=== PATIENT | female | born 1950 | race Caucasian/White ===

== ENCOUNTER 2021-02-28 19:46 | Emergency (ER) | payer MEDICARE, SELFPAY ==
--- NOTE | ~2021-02-28 | XR_ITS ---
EXAMINATION: XR ankle RT min 3V DATE: 02/28/2021 20:26 INDICATION: Right ankle pain and swelling. TECHNIQUE: 4 views of right ankle were obtained. COMPARISON: None. FINDINGS: Bone alignment is normal. No fracture. Joint spaces are well maintained. There is an enthes ophyte at plantar aspect of calcaneal tuberosity. Ankle soft tissue swelling is noted. IMPRESSION: 1. No fracture. Reviewed, dictated and finalized at location A. IMPRESSION: 1. No fracture.
[2021-02-28 20:09] VITALS: BP 151/70; PULSE 87; RESP 18; TEMP 37.1; O2SAT 100
[2021-02-28 23:52] VITALS: BP 149/77; PULSE 81; RESP 18; O2SAT 99
[2021-03-01 00:37] LABS: Basophils Absolute Auto 0.1 K/mm3 (0.0-0.1); Basophils Percent Auto 0.4 % (0.2-1.2); Eosinophils Absolute Auto 0.2 K/mm3 (0-0.3); Eosinophils Percent Auto 1.4 % (0-4.4); Hematocrit 39.8 % (37.0-47.0); Hemoglobin 12.7 g/dL (12.0-15.0); Immature Granulocyte Absolute 0.06 K/mm3 (0.00-0.031); Immature Granulocyte Percent A 0.4 % (0-0.5); Lymphocytes Absolute Auto 0.99 K/mm3 (0.9-3.2); Lymphocytes Percent Auto 5.9 % (18.3-44.2); Mean Corpuscular HGB Conc 31.9 g/dl (32-36); Mean Corpuscular Hemoglobin 28.3 pg (26-34); Mean Corpuscular Volume 88.8 fl (80-100); Mean Platelet Volume 12.1 fl (7.4-10.4); Monocytes Absolute Auto 1.6 K/mm3 (0.1-0.6); Monocytes Percent Auto 9.8 % (2.6-8.5); Neutrophils Absolute Auto 13.7 K/mm3 (1.3-6.7); Neutrophils Percent Auto 82.1 % (45.5-73.1); Platelet Count Result 229 k/mm3 (150-375); Red Blood Count 4.48 M/mm3 (4.2-5.4); Red Cell Distribution Width 14.2 % (11.5-14.5); White Blood Count 16.6 K/mm3 (4.5-10.0)
[2021-03-01 00:46] LABS: Anion Gap 9 mmol/L (8-16); Blood Urea Nitrogen 27 mg/dL (7-17); Calcium 9.1 mg/dL (8.4-10.2); Carbon Dioxide 27 mmol/L (22-30); Chloride 99 mmol/L (98-107); Estimated CRCL calculation 49 ml/min; Estimated Glomerular Filt Rate 54; Glucose 131 mg/dL (65-110); Potassium 3.7 mmol/L (3.4-5.0); Sodium 135 mmol/L (137-145)
[2021-03-01 01:44] VITALS: BP 151/66; PULSE 90; RESP 16; O2SAT 99
--- NOTE | 2021-03-01 03:01 | ED.LOWEXIN ---
HPI - Extremity Injury (Lower) General Chief Complaint: Extremity Injury, Lower Stated Complaint: RIGHT ankle pain and swelling Time Seen by Provider: 02/28/21 23:56 History of Present Illness HPI Narrative: Patient is a 71-year-old female who presents ER with redness to her right medial ankle. This developed over the last day. It is warm and tender to touch. Denies trauma. Patient is alert and oriented x2. Sent from [facility] for evaluation. Related Data Home Medications Medication Instructions Recorded Confirmed aspirin 03/01/21 bupropion HCl mg PO 03/01/21 levothyroxine 03/01/21 modafinil mg 03/01/21 nystatin [Nystop] TOPICAL 03/01/21 potassium chloride meq PO 03/01/21 Allergies Allergy/AdvReac Type Severity Reaction Status Date / Time garlic Allergy Unknown Verified 03/01/21 00:06 Review of Systems Review of Systems: ROS unobtainable: Yes unobtainable due to mental status PMFSH Past Medical History Medical History (Updated 03/01/21 @ 03:11 by Stanley Chowdary MD) Dementia Depression Hypothyroidism Surgical History Surgical History (Updated 03/01/21 @ 03:04 by Stanley Chowdary MD) No pertinent past surgical history Social History Social History (Updated 03/01/21 @ 03:04 by Stanley Chowdary MD) Social History: Resides at [facility] Exam Narrative: GENERAL: Well-appearing, well-nourished, and in no acute distress. HEAD: Normocephalic, atraumatic. EYES: PERRL and EOMI. CHEST: Clear to auscultation. No respiratory distress. HEART: Regular rate and rhythm. Normal peripheral pulses. ABDOMEN: Soft, nontender, nondistended. EXTREMITIES: Normal range of motion. No edema. Cellulitis right medial ankle extending to the distal calf. SKIN: Warm, dry, no rash. Cellulitis right ankle. Does not involve the foot. NEURO: Alert and oriented x2. PSYCH: Normal mood and affect. Course Course Emergency Course: Patient given IV antibiotics. Will start on oral cephalexin. Follow-up with PCP. Vital Signs Vital signs: Vital Signs Temperature 98.8 F 02/28/21 20:09 Pulse Rate 87 02/28/21 20:09 Respiratory Rate 18 02/28/21 20:09 Blood Pressure 151/70 H 02/28/21 20:09 Pulse Oximetry 100 02/28/21 20:09 Temperature 98.8 F 02/28/21 20:09 Pulse Rate 90 03/01/21 01:44 Respiratory Rate 16 03/01/21 01:44 Blood Pressure 151/66 H 03/01/21 01:44 Pulse Oximetry 99 03/01/21 01:44 MDM - Extremity Injury (Lower) Lab Data Result diagrams: 03/01/21 00:28 03/01/21 00:28 Labs: Lab Results 03/01/21 03/01/21 Range/Units 00:28 00:28 WBC 16.6 H (4.5-10.0) K/mm3 RBC 4.48 (4.2-5.4) M/mm3 Hgb 12.7 (12.0-15.0) g/dL Hct 39.8 (37.0-47.0) % MCV 88.8 (80-100) fl MCH 28.3 (26-34) pg MCHC 31.9 L (32-36) g/dl RDW 14.2 (11.5-14.5) % Plt Count 229 (150-375) k/mm3 MPV 12.1 H (7.4-10.4) fl Immature Gran % (Auto) 0.4 (0-0.5) % Neut % (Auto) 82.1 H (45.5-73.1) % Lymph % (Auto) 5.9 L (18.3-44.2) % Bureau % (Auto) 9.8 H (2.6-8.5) % Eos % (Auto) 1.4 (0-4.4) % Baso % (Auto) 0.4 (0.2-1.2) % Lymph # (Auto) 0.99 (0.9-3.2) K/mm3 Bureau # (Auto) 1.6 H (0.1-0.6) K/mm3 Eos # (Auto) 0.2 (0-0.3) K/mm3 Baso # (Auto) 0.1 (0.0-0.1) K/mm3 Abs Immat Gran (auto) 0.06 H (0.00-0.031) K/mm3 Absolute Neuts (auto) 13.7 H (1.3-6.7) K/mm3 Absolute Nucleated RBC 0.0 (0.0-0.012) K/mm3 Nucleated RBC % 0.0 (0.0-0.2) % Sodium 135 L (137-145) mmol/L Potassium 3.7 (3.4-5.0) mmol/L Chloride 99 (98-107) mmol/L Carbon Dioxide 27 (22-30) mmol/L Anion Gap 9 (8-16) mmol/L BUN 27 H (7-17) mg/dL Creatinine 1.00 (0.7-1.0) mg/dL Estim Creat Clear Calc 49 ml/min Estimated GFR 54 L (59 - ) Glucose 131 H (65-110) mg/dL Calcium 9.1 (8.4-10.2) mg/dL Discharge Plan Discharge Clinical Impression: Ankle cellulitis Patient Dispos
--- NOTE | 2021-03-01 03:05 | PC.NURSE ---
This RN contacted Harsha, pts son, for ride back to [place]. States he will be here as soon as he can.
[2021-03-01 03:29] VITALS: BP 134/76; PULSE 88; RESP 16; O2SAT 99
== END 2021-03-01 03:55 ==
PROVIDERS: Emergency Provider Emergency Medicine; PCP Internal Medicine
DX: L03.115 Cellulitis of right lower limb (principal); F03.90 Unspecified dementia, unspecified severity, without behavioral disturbance, psychotic disturbance, mood disturbance, and anxiety; E03.9 Hypothyroidism, unspecified; F32.9 Major depressive disorder, single episode, unspecified; Z79.82 Long term (current) use of aspirin
CPT/HCPCS: 36415; 73610; 80048; 85025; 96365; 99284; J0690

== ENCOUNTER 2021-05-15 20:18 | Emergency (ER) | payer MEDICARE, SELFPAY ==
--- NOTE | ~2021-05-15 | CT_ITS ---
EXAMINATION: CT brain wo con DATE: 05/15/2021 23:36 INDICATION: Syncope TECHNIQUE: Computed tomography (CT) of the head was performed without intravenous contrast. Sagittal and coronal reconstructions were performed. The mA was adjusted according to patient size. Iterative reconstruction technique was employed. The dose-length product was 605.33 mGy-cm. COMPARISON: None FINDINGS: No fracture. No acute intracranial hemorrhage, acute infarction or abnormal extra axial fluid collect ion. There is mild scattered white matter hypoattenuation consistent with chronic small vessel ischem ic disease. Symmetric prominence of the sulci and ventricles consistent with moderate age-appropriate diffuse cerebral volume loss. No mass/mass effect. The orbits, paranasal sinuses and mastoid air deanne ls are normal. IMPRESSION: 1. Age-related changes including moderate diffuse volume loss and mild scattered white matter hypoatt enuation consistent with chronic small vessel ischemic disease. Reviewed, dictated and finalized at location A. ACQUISITION ANALYST IMPRESSION: 1. Age-related changes including moderate diffuse volume loss and mild scattere d white matter hypoattenuation consistent with chronic small vessel ischemic di sease.
--- NOTE | ~2021-05-15 | XR_ITS ---
EXAMINATION: [id number] DATE: 05/15/2021 23:54 INDICATION: Posterior left lower rib pain post fall TECHNIQUE: A frontal inspiratory view of the chest and 3 views of the left ribs were obtained. COMPARISON: None FINDINGS: Minimally displaced acute posterolateral left ninth rib fracture. Old healed fracture deformities at the left 2nd-6th ribs. Old healed fracture deformity at the proximal left humerus. No focal airspace opacities, pulmonary edema, pleural effusion or pneumothorax. Cardiomediastinal silhouette is normal. IMPRESSION: 1. Minimally displaced acute posterolateral left ninth rib fracture. 2. No acute cardiopulmonary disease. Reviewed, dictated and finalized at location A. INE TICKET AGENT
--- NOTE | ~2021-05-15 | XR_ITS ---
EXAMINATION: XR hip LT 2V w AP pelvis DATE: 05/15/2021 23:53 INDICATION: Generalized pelvis and left hip pain post fall TECHNIQUE: Anteroposterior view of the pelvis and anteroposterior and frog-leg lateral views of the l eft hip were obtained. COMPARISON: None. FINDINGS: Normal alignment at the bilateral hips. No fracture. Sacral arches are intact. Bilateral hip and sacr oiliac joint spaces appear normal. Lower lumbar spondylosis. A couple phleboliths in the pelvis. IMPRESSION: 1. No acute osseous abnormality at the left hip or pelvis. Reviewed, dictated and finalized at location A. THCARE FINANCIAL ANALYST
[2021-05-15 20:22] VITALS: BP 154/78; PULSE 68; RESP 20; TEMP 36.1; O2SAT 99
--- NOTE | 2021-05-15 23:25 | ED.FALL ---
HPI - Fall General Chief Complaint: Fall Stated Complaint: Fall. L side pain Time Seen by Provider: 05/15/21 22:59 Source: patient Mode of arrival: ambulatory Limitations: no limitations History of Present Illness HPI Narrative: Patient is a 71-year-old female complaining of left rib pain and left hip pain after she fell at the assisted living facility prior to arrival. Patient states that she cannot recall what happened. Patient does not know if she passed out or not. Patient denies any head, neck, abdomen, back or any other extremity pain/injury. Related Data Home Medications Medication Instructions Recorded Confirmed aspirin 03/01/21 bupropion HCl mg PO 03/01/21 levothyroxine 03/01/21 modafinil mg 03/01/21 nystatin [Nystop] TOPICAL 03/01/21 potassium chloride meq PO 03/01/21 Allergies Allergy/AdvReac Type Severity Reaction Status Date / Time garlic Allergy Unknown Verified 05/15/21 20:25 Review of Systems Review of Systems: All systems reviewed & are unremarkable except as noted in HPI and below Constitutional: Constitutional: Denies body ache(s), Denies chills, Denies excessive sweating, Denies fatigue, Denies fever(s), Denies headache(s), Denies lethargy, Denies malaise, Denies weakness and Denies weight loss Eyes: Eyes: Denies blurry vision, Denies change in vision and Denies loss of vision ENT: Denies dizziness, Denies ear discharge, Denies headache(s), Denies lip swelling, Denies epistaxis, Denies nasal congestion, Denies neck pain, Denies throat swelling and Denies tongue swelling Cardiovascular: Cardiovascular: Denies chest pain, Denies chest pain at rest, Denies chest pain with activity, Denies diaphoresis, Denies rapid heart rate, Denies edema, Denies irregular heart rhythm, Denies lightheadedness, Denies palpitations, Denies dyspnea and Denies dyspnea on exertion Respiratory: Respiratory: Denies chest congestion, Denies cough, Denies hemoptysis, Denies dyspnea and Denies dyspnea on exertion Gastrointestinal: Gastrointestinal: Denies abdominal pain, Denies melena, Denies hematochezia, Denies diarrhea, Denies nausea, Denies vomiting and Denies hematemesis Musculoskeletal: Musculoskeletal: Denies abnormal gait, Denies deformity, Denies joint swelling, Denies limited range of motion, Denies neck pain and Denies numbness Neurologic: Denies Abnormal speech present, Denies abnormal gait, Denies confusion, Denies dizziness, Denies headache(s), Denies focal weakness, Denies loss of vision, Denies numbness, Denies Other visual disturbances, Denies Sensory deficit (Neuro) and Denies weakness Psychiatric: Psychiatric: Denies confusion, Denies depression, Denies auditory hallucinations, Denies homicidal ideation and Denies suicidal ideation Endocrine: Endocrine: Denies cold intolerance, Denies excessive sweating, Denies fatigue, Denies heat intolerance and Denies palpitations Hematologic/Lymphatic: Hematologic/Lymphatic: Denies easy bleeding and Denies easy bruising Allergic/Immunologic: Allergic/Immunologic: Denies lip swelling, Denies throat swelling and Denies tongue swelling PMFSH Past Medical History Medical History Dementia Depression Hypothyroidism Surgical History Surgical History No pertinent past surgical history Social History Social History Social History: Resides at [facility] Exam Const: General: cooperative, healthy appearing, comfortable, no acute distress, well developed, alert and awake; No confusion Orientation/consciousness: oriented to person, oriented to place, oriented to time, patient oriented x3 and No confusion Limitations: no limitations HENMT: Head: normal to inspection, normocephalic and atraumatic Ears: hearing grossly normal bilaterally, TM normal on the right and TM normal on the left Gen
[2021-05-15 23:57] VITALS: PULSE 70; RESP 19; O2SAT 98
[2021-05-16] VITALS (21 sets, daily range): BP systolic 124–182; BP diastolic 76–104; PULSE 62–75; RESP 15–23; O2SAT 93–100
[2021-05-16 00:10] LABS: Basophils Absolute Auto 0.1 K/mm3 (0.0-0.1); Basophils Percent Auto 0.8 % (0.2-1.2); Eosinophils Absolute Auto 0.5 K/mm3 (0-0.3); Eosinophils Percent Auto 5.5 % (0-4.4); Hematocrit 40.5 % (37.0-47.0); Hemoglobin 13.4 g/dL (12.0-15.0); Immature Granulocyte Absolute 0.05 K/mm3 (0.00-0.031); Immature Granulocyte Percent A 0.6 % (0-0.5); Lymphocytes Absolute Auto 0.87 K/mm3 (0.9-3.2); Lymphocytes Percent Auto 9.7 % (18.3-44.2); Mean Corpuscular HGB Conc 33.1 g/dl (32-36); Mean Corpuscular Hemoglobin 29.1 pg (26-34); Mean Corpuscular Volume 87.9 fl (80-100); Mean Platelet Volume 12.4 fl (7.4-10.4); Monocytes Absolute Auto 0.8 K/mm3 (0.1-0.6); Neutrophils Absolute Auto 6.7 K/mm3 (1.3-6.7); Neutrophils Percent Auto 74.4 % (45.5-73.1); Platelet Count Result 203 k/mm3 (150-375); Red Blood Count 4.61 M/mm3 (4.2-5.4); Red Cell Distribution Width 14.7 % (11.5-14.5)
[2021-05-16 00:19] LABS: Anion Gap 10 mmol/L (8-16); Blood Urea Nitrogen 28 mg/dL (7-17); Calcium 8.9 mg/dL (8.4-10.2); Carbon Dioxide 27 mmol/L (22-30); Chloride 101 mmol/L (98-107); Estimated Glomerular Filt Rate 54; Glucose 119 mg/dL (65-110); Potassium 4.2 mmol/L (3.4-5.0); Sodium 138 mmol/L (137-145)
--- NOTE | 2021-05-16 00:20 | ECG_ITS ---
Measurements Intervals [place] Rate: 69 P: 48 MT: 139 QRS: 6 QRSD: 90 T: 75 QT: 394 QTc: 424 Interpretive Statements SINUS RHYTHM LOW QRS VOLTAGE IN PRECORDIAL LEADS INFERIOR INFARCT, AGE INDETERMINATE BORDERLINE T WAVE ABNORMALITY- HIGH LATERAL LEADS BASELINE ARTIFACT- II, V1, V4-V6 ABNORMAL ECG Electronically Signed On 05-16-2021 7:47:37 FRONT DESK AUXILIARY by Johann Hernandez D.O.
[2021-05-16] MEDS: HYDROmorphone HCL INJ (*CRX) 1 MG/ML SYR 0.5 MG IM (01:29)
--- NOTE | 2021-05-16 02:51 | PC.NURSE ---
RN called report to Tita at [facility]. notified that Rx will need to be sent to pharmacy and what meds were given in ER. no questions at this time. ETA for EMS [id number], if EMS arrives late RN will call when pt leaves the ER.
[2021-05-16] MEDS: HYDROcodone/acetaminophen (*CRX) 5-325 MG TABLET 1 TAB PO (04:39)
== END 2021-05-16 04:50 ==
PROVIDERS: Emergency Provider Emergency Medicine; PCP Internal Medicine
DX: S22.32XA Fracture of one rib, left side, initial encounter for closed fracture (principal); F03.90 Unspecified dementia, unspecified severity, without behavioral disturbance, psychotic disturbance, mood disturbance, and anxiety; F32.A Depression, unspecified; E03.9 Hypothyroidism, unspecified; R94.31 Abnormal electrocardiogram [ECG] [EKG]; W19.XXXA Unspecified fall, initial encounter
CPT/HCPCS: 36415; 70450; 71101; 73502; 80048; 85025; 93005; 96372; 99284; A9270; J1170

== ENCOUNTER 2021-07-25 11:09 | Outpatient (CLI) | payer MEDICARE, SELFPAY ==
[2021-07-25 11:51] LABS: Basophils Absolute Auto 0.1 K/mm3 (0.0-0.1); Basophils Percent Auto 1.4 % (0.2-1.2); Eosinophils Absolute Auto 0.6 K/mm3 (0-0.3); Hematocrit 43.9 % (37.0-47.0); Hemoglobin 14.2 g/dL (12.0-15.0); Immature Granulocyte Absolute 0.02 K/mm3 (0.00-0.031); Immature Granulocyte Percent A 0.3 % (0-0.5); Lymphocytes Absolute Auto 0.83 K/mm3 (0.9-3.2); Lymphocytes Percent Auto 10.8 % (18.3-44.2); Mean Corpuscular HGB Conc 32.3 g/dl (32-36); Mean Corpuscular Hemoglobin 29.3 pg (26-34); Mean Corpuscular Volume 90.7 fl (80-100); Mean Platelet Volume 12.1 fl (7.4-10.4); Monocytes Absolute Auto 0.8 K/mm3 (0.1-0.6); Monocytes Percent Auto 10.1 % (2.6-8.5); Neutrophils Absolute Auto 5.3 K/mm3 (1.3-6.7); Neutrophils Percent Auto 69.4 % (45.5-73.1); Platelet Count Result 219 k/mm3 (150-375); Red Blood Count 4.84 M/mm3 (4.2-5.4); Red Cell Distribution Width 13.6 % (11.5-14.5); White Blood Count 7.7 K/mm3 (4.5-10.0)
[2021-07-25 12:02] LABS: Alanine Aminotransferase 24 U/L (4-35); Albumin Level 4.5 g/dL (3.5-5.1); Alkaline Phosphatase 76 U/L (38-126); Anion Gap 11 mmol/L (8-16); Aspartate Amino Transferase 26 U/L (14-36); Bilirubin,Total 0.7 mg/dL (0.2-1.3); Blood Urea Nitrogen 12 mg/dL (7-17); Calcium 8.9 mg/dL (8.4-10.2); Carbon Dioxide 23 mmol/L (22-30); Chloride 102 mmol/L (98-107); Cholesterol 189 mg/dL (0-200); Estimated Glomerular Filt Rate 54; Glucose 148 mg/dL (65-110); HDL Direct 60 mg/dL; Potassium 3.9 mmol/L (3.4-5.0); Sodium 136 mmol/L (137-145); Triglycerides 94 mg/dL (<150)
[2021-07-25 12:13] LABS: LDL Cholesterol Direct 97 mg/dL
[2021-07-25 13:05] LABS: Thyroid Stimulating Hormone Reflex 0.546 uIU/mL (0.465-4.68)
[2021-07-25 13:46] LABS: Folic Acid > 20.0 ng/mL (2.76->20); Vitamin B12 > 1000.0 pg/mL (239-931)
[2021-07-28 11:35] LABS: Vitamin D 1,25 (OH)2 Total 39 pg/mL (18-72); Vitamin D2 1,25 (OH)2 <8 pg/mL; Vitamin D3 1,25 (OH)2 39 pg/mL
== END 2021-07-25 11:10 | disposition home or self-care (01) ==
LOC: ANHLAB 11:19
PROVIDERS: PCP Internal Medicine
DX: E78.5 Hyperlipidemia, unspecified (principal); E53.8 Deficiency of other specified B group vitamins; E66.01 Morbid (severe) obesity due to excess calories; I10 Essential (primary) hypertension; E03.9 Hypothyroidism, unspecified; R79.89 Other specified abnormal findings of blood chemistry; E55.9 Vitamin D deficiency, unspecified
CPT/HCPCS: 36415; 80053; 80061; 82607; 82652; 82746; 84443; 85025

== ENCOUNTER 2022-04-10 12:50 | Outpatient (CLI) | payer MEDICARE, SELFPAY ==
--- NOTE | ~2022-04-10 | DEXA_ITS ---
Bone Density Report Name: MARCOS ZARCO Age: 72 Sex: Female Ethnicity: White Date of : 1950 Indication: postmenopausal; screening for osteoporosis; Referring Provider: UNKNOWN, UNKNOWN Study: Bone densitometry was performed. Exam Date: April 10, 2022 Accession number: [id number] Bone Density: Region BMD T-score Z-score Classification AP Spine(L1-L4) 0.970 -0.7 1.6 Normal Femoral Neck (Left) 0.557 -2.6 -0.6 Osteoporosis Total Hip (Left) 0.853 -0.7 1.0 Normal Femoral Neck (Right) 0.522 -2.9 -0.9 Osteoporosis Total Hip (Right) 0.766 -1.4 0.3 Osteopenia Total Hip Mean 0.809 -1.1 0.7 Osteopenia World Health Organization criteria for BMD impression classify patients as: Normal (T-score at or above -1.0), Osteopenia (T-score between -1.0 and -2.5), or Osteoporosis (T-score at or below -2.5). 10-year Fracture Risk: FRAX not reported because: Some T-score for Spine Total or Hip Total or Femoral Neck at or below -2.5 Clinical Information Provided by Patient: Patient maximum height was 62 Menopause Age: 43 No regular weight bearing exercise Drinks caffeinated beverages Onset of menses at age 11 Number of children 2 Impression: The patient has osteoporosis, based on the Right Femoral Neck T-score. Discussion: INCREASED RISK OF FRACTURE. BONE DENSITY IS UNDESIRABLY LOW AT ONE OR MORE SKELETAL SITES, CONSISTENT WITH POSTMENOPAUSAL OSTEOPOROSIS. This patient's lowest T-score meets the World Health Organization's (WHO) criteria for osteoporosis at one or more sites (T-score -2.5 or below). In untreated patients, the risk of osteoporotic fracture increases approximately two-fold for each 1.0 SD decrease in T-score. Low bone density is not the only risk factor for fracture; also consider factors such as patient's age, frailty or poor health, risk of falling, risk of injury, previous osteoporotic fracture, family history of osteoporosis, cigarette smoking, low body weight, etc. Not everyone with low bone mineral density has osteoporosis; osteomalacia and other metabolic bone disorders should also be considered. Patients who have osteoporosis should be evaluated for specific diseases and conditions (secondary causes) that may cause or contribute to bone loss. The [place] Association [employer] Clinical Endocrinologists (AACE) and National Osteoporosis Foundation (NOF) recommend pharmacologic intervention for all postmenopausal women whose T-score is in this range. The patient should follow a healthful lifestyle (good nutrition with adequate calcium and vitamin D, and appropriate weight-bearing exercise). Follow-Up: Consider a repeat BMD and Vertebral Fracture Assessment (VFA) exam in 2 years or sooner if medically necessary, to reassess this patient's status. Reported by: RAMIRO on 04/10/2022 1:16:00
== END 2022-04-10 12:51 | disposition home or self-care (01) ==
PROVIDERS: PCP Internal Medicine
DX: Z78.0 Asymptomatic menopausal state (principal); E55.9 Vitamin D deficiency, unspecified; M81.0 Age-related osteoporosis without current pathological fracture; M85.851 Other specified disorders of bone density and structure, right thigh
CPT/HCPCS: 77080

== ENCOUNTER 2022-04-17 10:11 | Outpatient (CLI) | payer MEDICARE, SELFPAY ==
[2022-04-17 10:52] LABS: Alanine Aminotransferase 22 U/L (6-35); Albumin Level 4.5 g/dL (3.5-5.1); Alkaline Phosphatase 89 U/L (38-126); Anion Gap 10 mmol/L (8-16); Aspartate Amino Transferase 21 U/L (14-36); Bilirubin,Total 0.6 mg/dL (0.2-1.3); Blood Urea Nitrogen 22 mg/dL (7-17); Calcium 9.1 mg/dL (8.4-10.2); Carbon Dioxide 27 mmol/L (22-30); Chloride 102 mmol/L (98-107); Estimated Glomerular Filt Rate 44; Glucose 112 mg/dL (65-110); Potassium 3.7 mmol/L (3.4-5.0); Sodium 139 mmol/L (137-145)
[2022-04-17 11:42] LABS: Vitamin B12 > 1000.0 pg/mL (239-931)
[2022-04-17 12:51] LABS: Free T4 Free Thyroxine Reflex 1.71 ng/dL (0.78-2.19)
[2022-04-17 14:36] LABS: Total Triiodothyronine (T3) 1.09 NG/ML (0.97-1.69)
== END 2022-04-17 10:12 | disposition home or self-care (01) ==
PROVIDERS: PCP Internal Medicine
DX: E53.8 Deficiency of other specified B group vitamins (principal); E03.9 Hypothyroidism, unspecified; I10 Essential (primary) hypertension
CPT/HCPCS: 36415; 80053; 82607; 84439; 84443; 84480

== ENCOUNTER 2022-06-13 07:59 | Emergency (ER) | payer MEDICARE, SELFPAY ==
--- NOTE | ~2022-06-13 | CT_ITS ---
CT head without contrast Indication: Head injury COMPARISON: 05/15/2021 Technique: Serial scans were obtained through the brain without the administration of contrast. Dose reduction technique was used on this scan by utilizing automated exposure control and iterative recon struction technique. The dose-length product (DLP) was 605.33 mGy-cm. Findings: There is no evidence of intracranial hemorrhage, mass lesion, or acute infarct. The ventri cles and subarachnoid spaces are dilated, consistent with mild atrophy. Low attenuation regions are seen within the periventricular white matter bilaterally, likely representing changes from chronic mi crovascular ischemic disease. There is no evidence of edema, mass effect or midline shift. The visu alized paranasal sinuses and mastoid air cells are clear. Impression: No intracranial hemorrhage, mass, or acute infarct. Atrophy and chronic white matter changes, as above. Reviewed, dictated and finalized at location [] RACY SPECIALIST Impression: No intracranial hemorrhage, mass, or acute infarct. Atrophy and chronic white matter changes, as above.
--- NOTE | ~2022-06-13 | CT_ITS ---
Noncontrast CT scan of the cervical spine Technique: Multiple contiguous axial [address] images of the cervical spine were obtained and rec onstructed in 2D sagittal and coronal planes on the acquisition scanner. Dose reduction technique was used on this scan by utilizing automated exposure control, adjustment of the mA and/or kV according to patient size. Clinical History: Pain Findings: No fractures or dislocations. Disc osteophyte complexes are present at the C4-C5 and C5 an d C6 levels in the left paracentral regions, resulting in probable mild left-sided canal stenosis at these levels. There are scattered mild facet joint degenerative changes. No prevertebral soft tissue swelling. Impression: No fracture or subluxation of the cervical spine. Degenerative changes, as detailed above. Reviewed, dictated and finalized at location [] LE BACK OPERATOR Impression: No fracture or subluxation of the cervical spine. Degenerative changes, as detailed above.
[2022-06-13 07:56] VITALS: BP 156/67; PULSE 69; RESP 14; TEMP 36.4; O2SAT 98
--- NOTE | 2022-06-13 08:18 | ED.GENADULT ---
HPI - General Adult General Chief complaint: Fall Stated complaint: Fall/Hit head Time Seen by Provider: 06/13/22 08:05 History of Present Illness HPI narrative: 72-year-old female presenting to the emergency department from a local assisted living for evaluation after having a mechanical ground-level fall. Patient states she slipped on her shoes causing her to fall and strike her head. Patient denies any associated loss conscious. Patient denies any pain or injury. Patient denies taking any blood thinners. Upon arrival to the emergency room patient is alert oriented and pleasantly witty. Patient denies any complaints at this time. Related Data Home Medications Medication Instructions Recorded Confirmed aspirin 81 mg chewable tablet 03/01/21 bupropion HCl 300 mg 24 hr tablet, mg PO 03/01/21 extended release levothyroxine 88 mcg tablet 03/01/21 modafinil 200 mg tablet mg 03/01/21 nystatin 100,000 unit/gram topical topical 03/01/21 powder (Nystop) potassium chloride 10 mEq meq PO 03/01/21 tablet,extended release Allergies Allergy/AdvReac Type Severity Reaction Status Date / Time garlic Allergy Unknown Verified 06/13/22 08:06 Review of Systems Review of Systems: CONSTITUTIONAL: Denies fever, chills, or sweats. EYES: Denies visual changes, redness, or discharge. ENT: Denies rhinorrhea, congestion, sore throat, or otalgia. CARDIOVASCULAR: Denies chest pain, palpitations, or edema. RESPIRATORY: Denies cough or dyspnea. GASTROINTESTINAL: Denies abdominal pain, nausea, vomiting, or diarrhea. GENITOURINARY: Denies dysuria or hematuria. SKIN: Denies rash or itching. MUSCULOSKELETAL: Denies back pain, joint pain, or myalgia. NEUROLOGIC: Denies headache, numbness, or weakness. PMFSH Past Medical History Medical History Dementia Depression Hypothyroidism Surgical History Surgical History No pertinent past surgical history Social History Social History Social History: Resides at [facility] Exam Narrative: APPEARANCE: Well appearing, no pain, no distress, well-nourished. HEAD: normocephalic, atraumatic. EYES: PERRLA/EOMI, conjunctivae clear. NOSE: Normal no drainage EARS:TMS clear with good light reflex. THROAT: Pharynx clear, no exudate. NECK: Supple. No adenopathy, no masses. RESPIRATORY: Airway patent, respirations nonlabored. Clear to auscultation bilaterally, no rales, rhonchi, wheezing. CARDIOVASCULAR: Regular rate and rhythm without murmurs rubs or gallops. ABDOMINAL: Soft, nontender, nondistended, normal bowel sounds MUSCULOSKELETAL: Moves all extremities. Strength/ROM intact, No edema, No calf tenderness. NEURO: Alert. Cranial nerves II through XII intact. Grossly intact SKIN: Warm, dry. Normal Color Course Course Emergency Course: Head and neck CT were negative for acute findings. Patient was able to be discharged back to her assisted living. All questions concerns were addressed. Vital Signs Vital signs: Vital Signs Temperature 97.6 F 06/13/22 07:56 Pulse Rate 69 06/13/22 07:56 Respiratory Rate 14 06/13/22 07:56 Blood Pressure 156/67 H 06/13/22 07:56 Pulse Oximetry 98 06/13/22 07:56 Oxygen Delivery Room Air 06/13/22 07:56 Temperature 97.6 F 06/13/22 07:56 Pulse Rate 69 06/13/22 09:07 Respiratory Rate 15 06/13/22 09:07 Blood Pressure 134/87 06/13/22 09:07 Pulse Oximetry 99 06/13/22 09:07 Oxygen Delivery Room Air 06/13/22 07:56 Medical Decision Making Vital Signs Vital Signs: Vital Signs Temperature 97.6 F 06/13/22 07:56 Pulse Rate 69 06/13/22 07:56 Respiratory Rate 14 06/13/22 07:56 Blood Pressure 156/67 H 06/13/22 07:56 Pulse Oximetry 98 06/13/22 07:56 Oxygen Delivery Room Air 06/13/22 07:56 Temperature 97.6 F 06/13/22
--- NOTE | 2022-06-13 08:40 | PC.NURSE ---
C Collar removed by EDP Dr Lake. Pt to CT scan via stretcher at this time.
[2022-06-13 09:07] VITALS: BP 134/87; PULSE 69; RESP 15; O2SAT 99
--- NOTE | 2022-06-13 09:08 | PC.NURSE ---
Called [facility] and [facility] for nurse to nurse report, name Judit was given on machine. This RN left name and PH# to return call in order to receive report.
== END 2022-06-13 11:11 ==
LOC: ANHED 09:08
PROVIDERS: Emergency Provider Emergency Medicine; PCP Internal Medicine
DX: S09.90XA Unspecified injury of head, initial encounter (principal); F03.90 Unspecified dementia, unspecified severity, without behavioral disturbance, psychotic disturbance, mood disturbance, and anxiety; E03.9 Hypothyroidism, unspecified; F32.A Depression, unspecified; W01.0XXA Fall on same level from slipping, tripping and stumbling without subsequent striking against object, initial encounter
CPT/HCPCS: 70450; 72125; 99284

== ENCOUNTER 2022-11-07 13:38 | Outpatient (CLI) | payer MEDICARE, SELFPAY ==
[2022-11-07 14:51] LABS: Anion Gap 8 mmol/L (8-16); Blood Urea Nitrogen 22 mg/dL (7-17); Calcium 8.9 mg/dL (8.4-10.2); Carbon Dioxide 27 mmol/L (22-30); Chloride 103 mmol/L (98-107); Estimated Glomerular Filt Rate 49; Glucose 119 mg/dL (65-110); Potassium 3.8 mmol/L (3.4-5.0); Sodium 138 mmol/L (137-145)
== END 2022-11-07 13:39 | disposition home or self-care (01) ==
PROVIDERS: PCP Internal Medicine; Visit Provider Hospitalist
DX: I10 Essential (primary) hypertension (principal)
CPT/HCPCS: 36415; 80048

== ENCOUNTER 2024-02-01 17:00 | Emergency (ER) | payer MEDICARE, SELFPAY ==
--- NOTE | ~2024-02-01 | XR_ITS ---
XR ankle LT min 3V DATE: 02/01/2024 17:21 INDICATION: Twisted ankle from fall. Ankle pain, swelling TECHNIQUE: 3 views COMPARISON: None FINDINGS: There is generalized prominent soft tissue swelling of the left ankle. Slight plantar calcaneal enthesopathy. No fracture or dislocation of the ankle or disruption of the ankle mortise is detected. IMPRESSION: Soft tissue swelling; no apparent fracture or dislocation Reviewed, dictated and finalized at location J.
--- NOTE | ~2024-02-01 | XR_ITS ---
XR foot LT min 3V DATE: 02/01/2024 17:21 INDICATION: Fall, twisted ankle. Ankle and foot pain TECHNIQUE: 3 views COMPARISON: None FINDINGS: There is soft tissue swelling of the ankle and foot. Slight plantar calcaneal enthesopathy. No fracture, dislocation, periosteal reaction or bone destruction. IMPRESSION: Soft tissue swelling; no fracture or dislocation is detected Reviewed, dictated and finalized at location J.
[2024-02-01 17:02] VITALS: BP 111/57; PULSE 82; RESP 16; TEMP 36.4; O2SAT 97
[2024-02-01 18:00] VITALS: BP 118/69; PULSE 80; RESP 16; TEMP 36.3; O2SAT 98
--- NOTE | 2024-02-01 18:43 | ED.LOWEXIN ---
HPI - Extremity Injury (Lower) General Chief Complaint: Extremity Injury, Lower Stated Complaint: fall Time Seen by Provider: 02/01/24 17:14 History of Present Illness HPI Narrative: Patient is a 74-year-old female presenting with left ankle pain. Patient states that she was working in the garden when she slipped on a rock twisted her left ankle. Had immediate pain with weight-bearing so she came in for evaluation. States that she did not fall strike her head. No other injuries or complaints. Related Data Home Medications Medication Instructions Recorded Confirmed aspirin 81 mg chewable tablet 03/01/21 bupropion HCl 300 mg 24 hr tablet, mg PO 03/01/21 extended release levothyroxine 88 mcg tablet 03/01/21 modafinil 200 mg tablet mg 03/01/21 nystatin 100,000 unit/gram topical topical 03/01/21 powder (Nystop) potassium chloride 10 mEq meq PO 03/01/21 tablet,extended release Allergies Allergy/AdvReac Type Severity Reaction Status Date / Time garlic Allergy Unknown Verified 02/01/24 17:22 Review of Systems Review of Systems: All systems reviewed & are unremarkable except as noted in HPI and below PMFSH Past Medical History Medical History Dementia Depression Hypothyroidism Surgical History Surgical History No pertinent past surgical history Social History Social History Social History: Resides at [facility] Exam Narrative: GENERAL: Well-appearing, in no acute distress HEAD: Normocephalic, atraumatic. EYES: PERRLA and EOMI. ENT: Grossly unremarkable NECK: Supple. CHEST: No respiratory distress. HEART: Regular rate and rhythm EXTREMITIES: left ankle with diffuse tenderness; ROM intact; pulses intact SKIN: Warm, dry, no rash. NEURO: Alert and oriented x3. PSYCH: Normal mood and affect. Course Vital Signs Vital signs: Vital Signs Temperature 97.6 F 02/01/24 17:02 Pulse Rate 82 02/01/24 17:02 Respiratory Rate 16 02/01/24 17:02 Blood Pressure 111/57 L 02/01/24 17:02 Pulse Oximetry 97 02/01/24 17:02 Oxygen Delivery Room Air 02/01/24 17:02 Temperature 98.9 F 02/01/24 18:54 Pulse Rate 81 02/01/24 18:54 Respiratory Rate 20 02/01/24 18:54 Blood Pressure 119/70 02/01/24 18:54 Pulse Oximetry 96 02/01/24 18:54 Oxygen Delivery Room Air 02/01/24 17:02 MDM - Extremity Injury (Lower) MDM Narrative Medical decision making narrative: [age] female presenting with left ankle pain after twisting it. Vitals stable. Exam remarkable for the above. X-ray show no acute abnormalities. She is safe for outpatient management. Recommend Tylenol and ibuprofen. PCP and orthopedic follow-up. Appropriate return precautions given. Discharged in stable condition. Differential Diagnosis Differential diagnosis: Likely ankle sprain and strain and ankle fracture Medical Records Attestation: I reviewed the patient's medical records. Imaging Data Radiologist's impression: ITS Impressions Foot X-Ray 02/01/24 17:39 IMPRESSION: Soft tissue swelling; no fracture or dislocation is detected Ankle X-Ray 02/01/24 17:40 IMPRESSION: Soft tissue swelling; no apparent fracture or dislocation Critical Care Time Critical Care Time Critical Care Time: No Discharge Plan Discharge Clinical Impression: Ankle sprain and strain Patient Disposition: Home, Self-Care Condition: Stable Instructions: Antibiotic Form, Ankle Sprain (DC) Additional Instructions: The x-rays today show no broken bones. Please use Tylenol and ibuprofen for pain control. Please rest and apply ice. Follow-up with primary care and orthopedic surgery. If your symptoms worsen or other concerning symptoms arise, please return to the ER. Prescriptions: No Action
[2024-02-01 18:54] VITALS: BP 119/70; PULSE 81; RESP 20; TEMP 37.2; O2SAT 96
== END 2024-02-01 19:01 ==
PROVIDERS: Emergency Provider Emergency Medicine; PCP Internal Medicine
DX: S93.402A Sprain of unspecified ligament of left ankle, initial encounter (principal); S96.912A Strain of unspecified muscle and tendon at ankle and foot level, left foot, initial encounter; F03.90 Unspecified dementia, unspecified severity, without behavioral disturbance, psychotic disturbance, mood disturbance, and anxiety; E03.9 Hypothyroidism, unspecified; F32.A Depression, unspecified; Z79.899 Other long term (current) drug therapy; Z79.82 Long term (current) use of aspirin; W01.0XXA Fall on same level from slipping, tripping and stumbling without subsequent striking against object, initial encounter; Y93.H2 Activity, gardening and landscaping
CPT/HCPCS: 73610; 73630; 99283

== ENCOUNTER 2025-01-06 19:42 | Emergency (ER) | payer MEDICARE, MEDICAID, SELFPAY ==
--- NOTE | ~2025-01-06 | XR_ITS ---
XR chest 1V Ordering provider: Carmen Rosenberg MD History: 75 years Female with . infection . Comparison: None. FINDINGS: MEDIASTINUM: The cardiac silhouette is not enlarged. LUNGS: No infiltrates, effusions or pneumothorax. OTHER: No free air under the diaphragm. Fracture of the left fifth and sixth ribs. 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 Degenerative changes of the spine. IMPRESSION: Fracture ribs seen in the left hemithorax. Otherwise, No acute cardiopulmonary pathology. Reviewed, dictated and finalized at location A.
[2025-01-06 19:48] VITALS: BP 154/76; PULSE 65; RESP 16; TEMP 36.2; O2SAT 96
[2025-01-06 21:57] LABS: Hematocrit 42.9 % (37.0-47.0); Hemoglobin 13.7 g/dL (12.0-15.0); Immature Granulocyte Percent A 0.2 % (0-0.5); Lymphocytes Absolute Auto 1.27 K/mm3 (0.9-3.2); Mean Corpuscular HGB Conc 31.9 g/dl (32-36); Mean Corpuscular Hemoglobin 27.9 pg (26-34); Mean Corpuscular Volume 87.4 fl (80-100); Nucleated Red Blood Cells Absolute Auto 0.000 K/mm3 (0.0-0.012); Nucleated Red Blood Cells Perc 0.0 % (0.0-0.2); Platelet Count Result 197 k/mm3 (150-375); Red Blood Count 4.91 M/mm3 (4.2-5.4); White Blood Count 10.1 K/mm3 (4.5-10.0)
[2025-01-06 22:10] LABS: Add Urine Microscopic? YES; Appearance Urine Clear (Clear); Glucose Urine UA Negative (Negative); Leukocyte Esterase Ur 2+ LEU/UL (Negative); Nitrate Urine Negative (Negative); Non Pathogenic Casts 0-2; Specific Grav Ur 1.018 (1.001-1.035)
[2025-01-06 22:12] LABS: Alanine Aminotransferase 17 U/L (6-35); Albumin Level 4.3 g/dL (3.5-5.1); Alkaline Phosphatase 71 U/L (38-126); Anion Gap 8 mmol/L (4-12); Aspartate Amino Transferase 25 U/L (14-36); Bilirubin,Total 0.3 mg/dL (0.2-1.3); Blood Urea Nitrogen 29 mg/dL (7-17); Calcium 9.0 mg/dL (8.4-10.2); Carbon Dioxide 29 mmol/L (22-30); Chloride 102 mmol/L (98-107); Estimated CRCL calculation 40 ml/min; Estimated Glomerular Filt Rate 42; Glucose 110 mg/dL (65-110); Magnesium 2.0 mg/dL (1.6-2.3); Potassium 3.8 mmol/L (3.4-5.0); Sodium 139 mmol/L (137-145); Total Protein 7.3 g/dL (6.3-8.2)
--- OUTSIDE RECORDS SUMMARY | 2025-01-06 22:12 | XMS_ITS | Encounter Summary ---
Author Organization [facility] Address [facility] [place] [address] Care Team Providers Care Psychologist Educational Name Role Phone Belkis Vela VICE PRESIDENT BUSINESS DEVELOPMENT Primary Care Provider Anish Castellanos MD Unavailable [phone] Michelle Sanchez RN Unavailable [phone] Qi Cross RN Unavailable [phone] Gavi Wright RN Unavailable Unavailab Annie Dimas Primary Care Provider + [phone] Kaiden Batista MD Primary Care Provider UnavailMargaret Villalobos VICE PRESIDENT BUSINESS DEVELOPMENT Primary Care Provider [phone] Ariane Reyes VICE PRESIDENT BUSINESS DEVELOPMENT Primary Care Provider [phone] Cha Fernandez VICE PRESIDENT BUSINESS DEVELOPMENT Unavailable [phone] Paul Escobedo DO Unavailable Gagan Godinez MD Unavailable [phone] Tiffany DanNP Primary Care Provider [phone] Encounter Details Date Type Department Care Team (Late st Contact Info) Description 05/30/2015 Abstract [facility] CONVERSION [address] [place] [address] , Generic Conversion, Social History Tobacco Use Types Packs/Day Years Used Date Smoking Tobacco: Never Assessed Comments Unknown Sex and Gender Information Value Date Recorded Sex Assigned at Female 05/16/2018 2:28 PM SMUDGER Legal Sex Female 8:23 PM CDT Gender Identity Female 05/16/2018 2:28 PM SMUDGER Sexual Orientation Straight 05/16/2018 2: 28 PM SMUDGER documented as of this encounter Plan of Treatment Not on file documented as of this encounter Visit Diagnoses Not on filedocumented in this encounter Care Teams Psychologist Educational Relationship Specialty Start Date End Date Belkis Vela NP PCP - General NURSE PRACTITIONER 04/09/18 05/19/20 [place] [address] [place] [address] PCP - General PHYSICIAN RETAIL GROCER 05/20/20 10/16/20 [place] [address] [place] [address] PCP - General FAMILY MEDICINE SPORTS MEDICINE 11/07/20 01/03/21 Margaret Fiore NP [address] [place] [address] PCP - General NURSE PRACTITIONER 01/04/21 01/23/21 Ariane Ryees NP [address] [place] [address] PCP - General Assisted Living Facility 01/24/21 07/01/23 Tiffany Dan APNP [address] [place] [address] PCP - General 07/02/23 Anish Eller MD [address] [address] Rekha Billing Auditor CARDIOVASCULAR DISEASE 01/23/19 Michelle Sanchez, RN [address] [place] [address] Printed Circuit Board Reworker (Ambulatory) REGISTERED NURSE 03/13/19 04/12/19 Qi Cross, RN [address] [facility] [address] [place] [address] Printed Circuit Board Reworker (Ambulatory) REGISTERED NURSE 03/17/19 04/12/19 Gavi Wright RN Care Manager (Ambulatory) REGISTERED NURSE 04/01/19 04/12/19 Cha Fernandez NP [address] [place] [address] Nurse Practitioner Assisted Living Facility 01/24/21 Paul Escobedo DO [address] [place] [address] Consulting Physician Assisted Living Facility 01/24/21 Gagan Godinez MD [address] [place] [address] HOSPITALIST 01/31/21 documented as of this encounter
--- OUTSIDE RECORDS SUMMARY | 2025-01-06 22:12 | XMS_ITS | Encounter Summary ---
Author Organization [facility] Address [facility] [place] [address] Care Team Providers Care Mice Raiser Name Role Phone Belkis Vela CHICKEN HATCHERY HELPER Primary Care Provider Anish Castellanos MD Unavailable [phone] Michelle Sanchez RN Unavailable [phone] Qi Cross RN Unavailable [phone] Gavi Wright RN Unavailable Unavailab Annie Dimas Primary Care Provider + [phone] Kaiden Batista MD Primary Care Provider UnavailMargaret Villalobos CHICKEN HATCHERY HELPER Primary Care Provider [phone] Ariane Reyes CHICKEN HATCHERY HELPER Primary Care Provider [phone] Cha Fernandez CHICKEN HATCHERY HELPER Unavailable [phone] Paul Escobedo DO Unavailable Gagan Godinez MD Unavailable [phone] Tiffany DanNP Primary Care Provider [phone] Encounter Details Date Type Department Care Team (Late st Contact Info) Description 05/17/2015 Abstract [facility] CONVERSION [address] [place] [address] , Generic Conversion, Social History Tobacco Use Types Packs/Day Years Used Date Smoking Tobacco: Never Assessed Comments Unknown Sex and Gender Information Value Date Recorded Sex Assigned at Female 05/16/2018 2:28 PM CITIZENSHIP TEACHER Legal Sex Female 8:23 PM CDT Gender Identity Female 05/16/2018 2:28 PM CITIZENSHIP TEACHER Sexual Orientation Straight 05/16/2018 2: 28 PM CITIZENSHIP TEACHER documented as of this encounter Plan of Treatment Not on file documented as of this encounter Visit Diagnoses Not on filedocumented in this encounter Care Teams Mice Raiser Relationship Specialty Start Date End Date Belkis Vela NP PCP - General NURSE PRACTITIONER 04/09/18 05/19/20 [place] [address] [place] [address] PCP - General PHYSICIAN ELECTRIC MOTOR FITTER 05/20/20 10/16/20 [place] [address] [place] [address] PCP - General FAMILY MEDICINE SPORTS MEDICINE 11/07/20 01/03/21 Margaret Fiore NP [address] [place] [address] PCP - General NURSE PRACTITIONER 01/04/21 01/23/21 Ariane Reyes NP [address] [place] [address] PCP - General Assisted Living Facility 01/24/21 07/01/23 Tiffany Dan APNP [address] [place] [address] PCP - General 07/02/23 Anish Eller MD [address] [address] Rekha Dining Chair Seat Cushion Trimmer CARDIOVASCULAR DISEASE 01/23/19 Michelle Sanchez, RN [address] [place] [address] Store Team Member (Ambulatory) REGISTERED NURSE 03/13/19 04/12/19 Qi Cross, RN [address] [facility] [address] [place] [address] Store Team Member (Ambulatory) REGISTERED NURSE 03/17/19 04/12/19 Gavi Wright RN Care Manager (Ambulatory) REGISTERED NURSE 04/01/19 04/12/19 Cha Fernandez NP [address] [place] [address] Nurse Practitioner Assisted Living Facility 01/24/21 Paul Escobedo DO [address] [place] [address] Consulting Physician Assisted Living Facility 01/24/21 Gagan Godinez MD [address] [place] [address] HOSPITALIST 01/31/21 documented as of this encounter
--- OUTSIDE RECORDS SUMMARY | 2025-01-06 22:12 | XMS_ITS | Encounter Summary ---
Author Organization [facility] Address [facility] [place] [address] Care Team Providers Care Gin Operator Name Role Phone Anish Eller MD Unavailable [phone] Ariane Reyes MEDICAL MANAGEMENT SPECIALIST Primary Care Provider [phone] Cha Fernandez NP Unavailable [phone] Paul Escobedo DO Unavailable Gagan Godinez MD Unavailable [phone] Tiffany Dan Primary Care Provider [phone] Encounter Details Date Type Department Care Team (Late st Contact Info) Description 06/26/2023 directworx Message Enc [facility] Family & Internal Medicine [address] [address] Phil, [facility] Provider Colonoscopy Social History Tobacco Use Types Packs/Day Years Used Date Smoking Tobacco: Never Smokeless Tobacco: Never Alcohol Use Standard Drinks/Week Comments No 0 (1 standard drink = 0.6 oz pur e alcohol) AUDIT-C Answer Date Recorded Frequency of Alcohol Consumption Never 05/16/2018 Average Number of Drinks Not on file 018 Frequency of Binge Drinking Not on file 05/01 Overall Financial Resource Strain (CARDIA) Answe r Date Recorded Difficulty of Paying Living Expenses Not hard at all 05/16/2018 PHQ-2 Answer Date Recorded PHQ-2 Score - If the patient scores above 3, please move on to questions 3-9 1 11/07/2020 Hunger Vital Sign Answer Date Recorded Worried About Running Out of Food in the Last Ye ar Never true 05/16/2018 Ran Out of Food in the Last Year Never true 05/16/2018 PRAPARE - Transportation Answer Date Re corded Lack of Transportation (Medical) No 05/16/2018 Lack of Transportation (Non-Medical) No 05/16/2018 Education Answer Date Recorded What is the highest level of school you have completed or the highest degree you have received? Master's degree (e.g., MA, MS, Maira, MEd, HOTEL CASINO FLOORPERSON, CELIA) 05/16/2018 Comments No Sex and Gender Information Value Date Recorded Sex Assigned at Female 05/16/2018 2:28 PM GIN OPERATOR Legal Sex Female 8:23 PM CDT Gender Identity Female 05/16/2018 2:28 PM GIN OPERATOR Sexual Orientation Straight 05/16/2018 2: 28 PM GIN OPERATOR Occupation Industry Job Start Date Job End Date Not on file Not on file Not on file Not on file documented as of this encounter Functional Status * RETIRED Are you deaf or do you have serious difficulty hearing Answer Date of Assessment Author Status No 03/12/2019 5:55 PM CDT Activ e * RETIRED Are you blind or do you have serious difficulty seeing, even when wearing glasses? Answer Date of Assessment Author Status No 03/12/2019 5:55 PM CDT Activ e * Do you have serious difficulty walking or climbing stairs? Answer Date of Assessment Author Status No 03/12/2019 5:55 PM CDT Alana Fernandez R N Active * Do you have difficulty dressing or bathing? Answer Date of Assessment Author Status No 03/12/2019 5:55 PM CDT Alana Fernandez R N Active * Because of a physical, mental, or emotional condition, do you have difficulty doing errands alone such as visiting a doctor's office or shopping? Answer Date of Assessment Author Status No 03/12/2019 5:55 PM CDT Alana Fernandez R N Active documented as of this encounter Mental Status * Because of a physical, mental, or emotional condition, do you have serious difficulty concentrating, remembering, or making decisions? Answer Entry Date Author Status No 03/12/2019 5:55 PM CDT Alana Fernandez R N Active documented in this encounter Plan of Treatment Not on file documented as of this encounter Visit Diagnoses Not on filedocumented in this encounter Additional Health Concerns Assessment Noted Time PHQ-9 Depression Total Score: 2 11/08/19 3:16 PM CDT documented as of this encounter Care Teams Gin Operator Relationship Specialty Start Date End Date Ariane Reyes NP Three [facility]. [address] [address] PCP - General Assisted Living Facility 01/24/21 Tiffany Dan APNP [address] [place] [address] PCP - General 07/02/23 Anish Eller MD [facility]. [address] [address] Watrous Investigation Officer CARDIOVASCULAR DISEASE 01/23/19 Cha Fernandez NP [facility]. [address] [address] Nurse Practitioner Assisted Living Facility 01/24/21 Paul Escobedo DO [facility]. [address] [address] Consulting Physician Assisted Living Facility 01/24/21 Gagan Godinez MD [address] [place] [address] HOSPITALIST 01/31/21 documented as of this encounter
--- OUTSIDE RECORDS SUMMARY | 2025-01-06 22:13 | XMS_ITS | Clinical Summary ---
Author Organization [facility] Address [address] [place] [address] Care Team Providers Care Carpenter/Labor Name Role Phone Anihs Eller MD Unavailable [phone] Cha Fernandez NP Unavailable [phone] Paul Escobedo DO Unavailable Gagan Godinez MD Unavailable [phone] Tiffany Dan Primary Care Provider [phone] Allergies Active Allergy Reactions Criticality Noted Date Comments Garlic Unknown Low 03/25/2013 Medications vitamin B-12 (CYANOCOBALAMIN) 1000 mcg tabletIndications :Vitamin B Deficiency Take 1 tablet (1,000 mcg total) by mouth. Indications: Vitamin B Deficiency Saturday and Saturday only 1 Active acetaminophen (TYLENOL) 325 MG tabletIndications :Acute pain of left shoulder,Acute midline low back pain without sciatica Take 2 tablets (650 mg total) by mouth 2 (two) times a day. May also take 2 tablets (650 mg total) 2 (two) times daily as needed for Pain. 120 tablet 1 4 Active alendronate (FOSAMAX) 70 MG tabletIndications :Age-related osteoporosis without current pathological fracture Take 1 tablet (70 mg total) by mouth every 7 days. 12 tablet 3 4 Active aspirin 81 MG chewable tabletIndications :Coronary artery disease involving grindstone coronary artery of grindstone heart, unspecified whether angina present Chew 1 tablet (81 mg total) by mouth daily. 90 tablet 3 4 Active buPROPion XL (WELLBUTRIN XL) 300 MG 24 hr tabletIndications :Depression Take 1 tablet (300 mg total) by mouth daily. Indications: Depression 90 tablet 3 4 Active Vitamin D3 (VITAMIN D) 50 mcg tabletIndications :Vitamin D Deficiency Take 1 tablet (50 mcg total) by mouth daily. Indications: Vitamin D Deficiency 90 tablet 3 4 Active levothyroxine (SYNTHROID) 88 MCG tabletIndications :Hypothyroidism, unspecified type Take 1 tablet (88 mcg total) by mouth daily. 90 tablet 3 4 Active potassium chloride CR (K-TAB) 10 MEQ Tab CR tabletIndications :Hypokalemia Take 1 tablet (10 mEq total) by mouth daily. Indications: Low Amount of Potassium in the Blood 90 tablet 3 4 Active sertraline (ZOLOFT) 25 MG tabletIndications :Depression with anxiety Take 1 tablet (25 mg total) by mouth daily. 90 tablet 3 4 Active meloxicam (MOBIC) 7.5 MG tabletIndications :Acute pain of right knee Take one tablet once daily for one week 7 tablet 4 Active nystatin (MYCOSTATIN) powderIndications :Class 2 severe obesity due to excess calories with serious comorbidity in adult, unspecified BMI (CMS/HCC),Rash of groin APPLY TO AFFECTED AREA 3 TIMES DAILY 60 g 5 Active Active Problems Problem Noted Date Diagnosed Date Moderate episode of recurrent major depressive d isorder 07/02/2023 Vitamin B12 deficiency 07/20/2021 Vitamin D deficiency, unspecified 07/20/2021 Frequent falls 01/26/2021 Class 2 severe obesity due t o excess calories with serious comorbidity in adult, unspecified BMI 11/07/2020 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 Transferred from [place] to [facility]. Subdural hematoma as well as to the proximal left humerus fracture. Nonsurgical treatment. No significant pain. Not taking any pain medications. Range of motion slowly improving. Try to get set up with home physical therapy and follow-up in 4 weeks for repeat evaluation and x-ray. Note to say that she can increase activities as tolerated. Fracture of multiple ribs of right side 05/21/20 Lumbar transverse process fracture ([facility]) 05/21/2020 Memory loss, short term 08/26/2019 BMI 37.0-37.9, adult 05/19/2019 History of cardiac disorder 01/20/2019 Localized edema 12/09/2018 Tinnitus of both ears 11/27/2018 Gait difficulty 05/22/2018 Increased glucose level 04/25/2016 Obesity 03/12/2016 Depression with anxiety 08/09/2015 Low vitamin D level 08/09/2015 Abnormal finding on mammography 05/17/2015 Dyslipidemia 03/19/2013 Hypertension 03/19/2013 Hypothyroidism 03/19/2013 Resolved Problems Problem Noted Date Diagnosed Date Resolved Date Acute blood loss anemia 05/30/202007/01 Decreased activities of daily living (ADL) 05/30/2020 07/12/2020 Contusion of flank 05/21/2020 Contusion of left lung 05/21/202011/07 SAH (subarachnoid hemorrhage ) ([facility]) 05/21/2020 07/02/2023 Subdural hematoma 05/21/2020 07/02/2023 Trauma 05/21/2020 11/07/2020 Cellulitis of right lower leg 01/20/2019 11/07/2020 Urinary frequency 11/27/2018 11/07/2020 Dizziness 11/27/2018 07/12/2020 Vertigo 11/27/2018 07/12/2020 Neoplasm of uncertain behavior 11/08/2017 11/07/2020 Bipolar disorder ([facility]) 03/12/2016 11/07/2020 Hypokalemia 12/23/2015 07/12/2020 Hyponatremia 12/23/2015 07/12/2020 Breast mass 05/20/2015 07/12/2020 Immunizations Immunization Administration Dates Next Due Fluzone High Dose - >Age 65 (Prefilled Syringe) 02/25/2020,03/26/2019,03/11/2018,2016,04/25/2016,04/21/2015,04/16/2014 Influenza (Generic) 03/26/2019, 8,05/17/2017,2015,04/21/2015,04/16/2014,03/11/2013,1 Influenza Adult (Generic) 04/25/2023,04/19/2021 Pneumococcal (Prevnar 13) 04/25/2016 Td (Tenivac) preservative free 12/01/2009 Tdap (Adacel) 02/25/2020 Zoster (Zostavax) 6[address]86 Unt/0.65Ml 01/29/2013 Family History Medical History Relation Comments None Mother Heart Paternal Grandfather Heart Paternal Grandmother Relation Status Comments Father Mother Paternal Grandfather Paternal Grandmother Social History Tobacco Use Types Packs/Day Years Used Date Smoking Tobacco: Never Smokeless Tobacco: Never Tobacco Cessation:Counseling Given: No Comments:Parents were smokers--second hand smoke exposure Alcohol Use Standard Drinks/Week Comments No 0 [...] at all 05/16/2018 PHQ-2 Answer Date Recorded Patient Health Questionnaire-2 Score 0 07/02/2023 Hunger Vital Sign Answer Date Recorded Worried [...] Master's degree (e.g., MA, MS, Maira, MEd, FISHING VESSEL CAPTAIN, CELIA) 05/16/2018 Comments No Sex and Gender Information Value Date Recorded Sex Assigned at Female 05/16/2018 2:28 PM SPORTS COMPLEX ATTENDANT Legal Sex Female 8:23 PM CDT Gender Identity Female 05/16/2018 2:28 PM SPORTS COMPLEX ATTENDANT Sexual Orientation Straight 05/16/2018 2: 28 PM SPORTS COMPLEX ATTENDANT Occupation Industry Job Start Date Job End Date Not on file Not on file Not on file Not on file Last Filed Vital Signs Vital Sign Reading Time Taken Comments Blood Pressure 124/80 11/26/2023 3:34 PM CDT Pulse 75 11/26/2023 3:34 PM CDT Temperature 36.7 C (98 F) 11/26/2023 3:34 PM CDT Respiratory Rate 18 11/26/2023 3:34 PM CDT Oxygen Saturation 98% 11/26/2023 3:34 PM CDT Inhaled Oxygen Concentration - - Weight 99.8 kg (220 lb 1.6 oz) 11/26/2023 3:34 P M CDT Height 165.1 cm (5' 5) 11/26/2023 3:34 PM CDT Body Mass Index 36.63 11/26/2023 3:34 PM CDT Plan of Treatment Health Maintenance Due Date Last Done Comments Annual Medicare Wellness Visit 01/03/2013 Zoster Vaccines (2 of 3) 03/26/2013 01/29/2013 Pneumococcal Vaccine: 50+ Years (2 of 2 - PPSV23) 04/25/2017 04/25/2016 RSV Immunization or 60+ Years (1 - 1-dose 75+ series) 01/03/2023 COVID-19 Vaccine ( season) 2024 12/15/2021, 05/11/2021, 09/21/2020, Additional history exists PHQ-2 (Physician Olive) 07/01/2024 07/02/2023 DTaP, Tdap and Td Vaccines (2 - Td or Tdap) 02/24/2030 02/25/2020, 12/01/2009 Colorectal Cancer Screening Colonoscopy (10 Years) Discontinued 06/07/2010 Hepatitis C Completed 11/24/2019 Dexa Scan (General) Completed 04/10/2022, Meningococcal B Vaccine Aged Out No l onger eligible based on patient's age to complete this topic Meningococcal Vaccine Aged Out No christina sushma eligible based on patient's age to complete this topic RSV Immunizations Under 20 Months Aged Out No longer eligible based on patient's age to complete this topic Procedures Procedure Name Priority Date/Time Associated Diagnosis Comments BONE DENSITY GENERIC (SCAN ORDER) 04/10/2022 HEPATITIS C ANTIBODY Routine 11/24/2019 4:26 PM CDT Low vitamin D level Hypothyroidism Hyperlipemia Hypertension Low blood magnesium level Hypouricemia COLONOSCOPY Routine 06/07/2010 12:00 AM SPORTS COMPLEX ATTENDANT from Last 3 Months or Most Recently Relevant to Health Maintenance Results * BONE DENSITY GENERIC (04/10/2022) Anatomical Region Laterality Modality Other 04/10/2022 [facility] Scanned SCANNING Final Resu lt * HEPATITIS C ANTIBODY (11/24/2019 4:26 PM CDT) HEPATITIS C AB NON-REACTI VE NON-REACTI VE 11/25/2019 10:50 AM CDT [facility] 11/24/2019 4:26 PM CDT [facility] HORTICULTURE SUPERINTENDENT LABORATORY Final Result [facility] [address] [place] [address], [place] [phone] * Colonoscopy (06/07/2010 12:00 AM SPORTS COMPLEX ATTENDANT) 06/07/2010 06/07/2010 Narrative [facility] TO EPIC CONVERSION - 06/07/2010 12:00 AM SPORTS COMPLEX ATTENDANT Documented hx of procedure Procedure Note , Keyla Hubbard MD - 05/04/2018 Documented hx of procedure Generic Conversion Md R[facility] PROCEDURE ORDERABLES Final Result [facility] TO EPIC CONVERSION from Last 3 Months or Most Recently Relevant to Health Maintenance Insurance [employer] Advance Directives Documents on File Type Date Recorded Patient Airbrush Artist Technical Expl anation Power of Tea Bag Packer 06/07/2022 8:52 AM 2019 POA property Advance Directives and Living Will 06/07/2022 8:51 AM 03/21/2020 POAHC * Full Code (Latest Code Status on File) Date Activated Date Inactivated Comments 07/27/2020 1:31 PM * POLST Date Activated Date Inactivated Comments 03/11/2019 3:07 PM 03/12/2019 8:40 PM Question Answer Comments Cardiopulmonary Resuscitatio n (CPR) If patient has no pulse and is not breathing: DO NOT Attempt Resuscitation CPR Medical Interventions when N OT in Cardiopulmonary Arrest (If patient is found with a pulse and/or is breathing): Full Treatment Full Treatment Options: Intubate * POLST Date Activated Date Inactivated Comments 03/08/2019 4:11 PM 03/11/2019 3:07 PM Question Answer Comments Cardiopulmonary Resuscitatio n (CPR) If patient has no pulse and is not breathing: DO NOT Attempt Resuscitation CPR Medical Interventions when N OT in Cardiopulmonary Arrest (If patient is found with a pulse and/or is breathing): Full Treatment Care Teams Carpenter/Labor Relationship Specialty Start Date End Date Tiffany Dan APNP [address] [place] [id number] PCP - General 07/02/23 Anish Eller MD [facility]. [address] [address] [place] Advertising Account Manager CARDIOVASCULAR DISEASE 01/23/19 Cha Fernandez, KD [facility]. [address] [id number] Nurse Practitioner Assisted Living Facility 01/24/21 Paul Escobedo DO [facility]. [address] [address] Consulting Physician Assisted Living Facility 01/24/21 Gagan Godinez MD [address] [place] [address] HOSPITALIST 01/31/21
[2025-01-06 22:18] VITALS: BP 158/79; PULSE 63; RESP 18; O2SAT 97
--- NOTE | 2025-01-06 22:20 | PC.NURSE ---
Update given over phone to daughter
--- NOTE | 2025-01-06 22:23 | ED_ITS ---
HPI - Fall General Chief Complaint: Fall Stated Complaint: High BP / AMS / Fall Time Seen by Provider: 01/06/25 21:34 History of Present Illness HPI Narrative: Patient is a 75-year-old female who presents the emergency department this ED this evening from [facility] due to concern for an elevated blood pressure. Initially EMS was called for lift assist. After assisting the patient the noticed that her blood pressure was elevated and prompted him to come to the emergency department for further evaluation. Upon arrival, patient's blood pressure in triage was noted to be in the 150s over 70s. EMS states that for them it was 200/90. Patient ambulate using a walker and she did have a mild fall today. Denies any injuries from that fall and patient herself currently is denying any symptoms. States that she feels great. Related Data Home Medications ?Medication ?Instructions ?Recorded ?Confirmed ?Last Taken ?Type aspirin 81 mg chewable tablet 03/01/21 Unknown History bupropion HCl 300 mg 24 hr tablet, mg PO 03/01/21 Unknown History extended release levothyroxine 88 mcg tablet 03/01/21 Unknown History modafinil 200 mg tablet mg 03/01/21 Unknown History nystatin 100,000 unit/gram topical topical 03/01/21 Unknown History powder (Nystop) potassium chloride 10 mEq meq PO 03/01/21 Unknown History tablet,extended release Allergies Allergy/AdvReac Type Severity Reaction Status Date / Time garlic Allergy Unknown Verified 01/06/25 19:39 Review of Systems 2 Review of Systems: All systems are reviewed and are negative unless stated otherwise in the HPI. [facility] Past Medical History Medical History Dementia Depression Hypothyroidism Surgical History Surgical History No pertinent past surgical history Social History Social History Social History: Resides at [facility] Exam 2 Narrative: General: Alert, awake, afebrile, in no acute distress. HEENT: PERRL, no rhinorrhea, no post nasal drip, oropharynx clear. Neck: Trachea midline, no JVD, no lymphadenopathy. Cardiovascular: Regular rate and rhythm, no murmurs, rubs or gallops, no peripheral edema. Respiratory: Clear to auscultation bilaterally, no tachypnea, no wheezing, no rhonchi, no rubs, no respiratory distress. Abdomen: Soft, nontender, nondistended, no rebound, no guarding, no peritoneal signs. Musculoskeletal: No joint swelling or deformity, normal muscle tone. Skin: No rashes or petechia, no signs of infection. Psychiatric: Alert and oriented, normal behavior and judgment for situation. Neurological: Alert and oriented to person, place, and time. Follows all commands. No focal deficits, speech is clear and fluent. Course Vital Signs Vital signs: Vital Signs Temperature 97.2 F L 01/06/25 19:48 Pulse Rate 65 01/06/25 19:48 Respiratory Rate 16 01/06/25 19:48 Blood Pressure 154/76 H 01/06/25 19:48 Pulse Oximetry 96 01/06/25 19:48 Oxygen Delivery Room Air 01/06/25 19:48 Temperature 97.2 F L 01/06/25 19:48 Pulse Rate 63 01/06/25 22:18 Respiratory Rate 18 01/06/25 22:18 Blood Pressure 158/79 H 01/06/25 22:18 Pulse Oximetry 97 01/06/25 22:18 Oxygen Delivery Room Air 01/06/25 19:48 MDM - Fall MDM Narrative Medical decision making narrative: The patient was evaluated by myself in the emergency department. History is obtained from patient who is an independent historian and physical exam was performed. External medical records were reviewed at this time. IV was established and pertinent tests were ordered. Laboratory results obtained revealing no acute process. Urinalysis unremarkable. Imaging studies obtained included CXR which was independently interpreted by me revealing: IMPRESSION: Fracture ribs seen in the left hemithorax. Otherwise, No acute cardiopulmonary pathology. Patient was informed of these findings at bedside. On repeat assessment, patient does not have any tenderness over her left rib cages and states that she did not hit that area when she fell. Denies any shortness of breath or any pain with deep inspiration. Differential diagnosis considerations include dehydration, electrolyte derangements, acute viral syndrome, infectious process such as pneumonia/UTI. Comorbidities impacting this visit include none p.m. I have evaluated and discussed social determinants of health with the patient that could potentially impact subsequent diagnosis and treatment plans. On repeat assessment of the patient, reevaluation revealed that the patient is doing well and is in no acute distress. Patient symptoms have improved since she arrived to our emergency department. Repeat vital signs were all reviewed and noted to be stable. Differential diagnosis and treatment plan were discussed with the patient at bedside. Patient agrees with discussion and after shared medical decision making agrees with discharge. All questions were answered to the patient's satisfaction. Patient will follow up with her PCP in 3-5 days. Patient was provided with strict return precautions and instructed to return to the emergency department if any new or worsening symptoms develop. The patient was discharged in stable condition. Lab Data 01/06/25 21:52 01/06/25 21:52 Labs: Lab Results 01/06/25 01/06/25 Range/Units 21:52 22:00 WBC 10.1 H (4.5-10.0) K/mm3 RBC 4.91 (4.2-5.4) M/mm3 Hgb 13.7 (12.0-15.0) g/dL Hct 42.9 (37.0-47.0) % MCV 87.4 (80-100) fl MCH 27.9 (26-34) pg MCHC 31.9 L (32-36) g/dl RDW 14.4 (11.5-14.5) % Plt Count 197 (150-375) k/mm3 MPV 12.3 H (7.4-10.4) fl Immature Gran % (Auto) 0.2 (0-0.5) % Neut % (Auto) 72.3 (45.5-73.1) % Lymph % (Auto) 12.6 L (18.3-44.2) % [place] % (Auto) 9.6 H (2.6-8.5) % Eos % (Auto) 4.5 H (0-4.4) % Baso % (Auto) 0.8 (0.2-1.2) % Lymph # (Auto) 1.27 (0.9-3.2) K/mm3 [place] # (Auto) 1.0 H (0.1-0.6) K/mm3 Eos # (Auto) 0.5 H (0-0.3) K/mm3 Baso # (Auto) 0.1 (0.0-0.1) K/mm3 Abs Immat Gran (auto) 0.02 (0.00-0.031) K/mm3 Absolute Neuts (auto) 7.3 H (1.3-6.7) K/mm3 Absolute Nucleated RBC 0.000 (0.0-0.012) K/mm3 Nucleated RBC % 0.0 (0.0-0.2) % Sodium 139 (137-145) mmol/L Potassium 3.8 (3.4-5.0) mmol/L Chloride 102 (98-107) mmol/L Carbon Dioxide 29 (22-30) mmol/L Anion Gap 8 (4-12) mmol/L BUN 29 H (7-17) mg/dL Creatinine 1.23 H (0.7-1.0) mg/dL Estim Creat Clear Calc 40 ml/min Estimated GFR 42 L (59 - ) Glucose 110 (65-110) mg/dL Calcium 9.0 (8.4-10.2) mg/dL Magnesium 2.0 (1.6-2.3) mg/dL Total Bilirubin 0.3 (0.2-1.3) mg/dL AST 25 (14-36) U/L ALT 17 (6-35) U/L Alkaline Phosphatase 71 (38-126) U/L Total Protein 7.3 (6.3-8.2) g/dL Albumin 4.3 (3.5-5.1) g/dL Urine Color Yellow (Yellow) Urine Appearance Clear (Clear) Urine pH 6.0 (5.0-9.0) Ur Specific [place] 1.018 (1.001-1.035) Urine Protein Negative (Negative) mg/dL Urine Glucose (UA) Negative (Negative) mg/dL Urine Ketones Negative (Negative) mg/dL Ur Blood (Man) Negative (Negative) Urine Nitrate Negative (Negative) Urine Bilirubin Negative (Negative) Urine Urobilinogen 0.2 (<2.0) mg/dL Leukocyte Esterase Rfl 2+ H (Negative) JIE/UL Urine RBC 0-2 (0-2) /hpf Urine WBC 6-10 H (0-3) /hpf Ur Squamous Epith Cells Few (Few) /hpf Urine Bacteria None seen /hpf Urine Casts 0-2 Discharge Plan Discharge Clinical Impression: Fall from ground level Patient Disposition: Home Condition: Improved Instructions: Antibiotic Form, Fall Prevention for Older Adults (ED) Additional Instructions: Please follow-up with your family doctor within the next 3-5 days. Return emergency department if any new or worsening symptoms develop. Patient Language: Arabic Prescriptions: No Action potassium chloride 10 mEq tablet extended release PO levothyroxine 88 mcg Tablet modafinil 200 mg Tablet aspirin 81 mg Tablet,Chewable nystatin [Nystop] 100,000 unit/gram powder TOPICAL bupropion HCl 300 mg Tablet Extended Release 24 Hr PO cephalexin 500 mg capsule 500 mg PO Q8H Qty: 21 0RF tramadol 50 mg tablet 50 mg PO Q6H PRN (Reason: pain) Qty: 12 0RF Follow-up/Referrals: Jesus Manuel,MD [place] [Primary Care Provider] - 3 Days Time of Disposition: 22:26
== END 2025-01-06 23:53 ==
PROVIDERS: Emergency Provider Emergency Medicine; PCP Internal Medicine
DX: R03.0 Elevated blood-pressure reading, without diagnosis of hypertension (principal); F03.90 Unspecified dementia, unspecified severity, without behavioral disturbance, psychotic disturbance, mood disturbance, and anxiety; F32.A Depression, unspecified; E03.9 Hypothyroidism, unspecified; S22.42XA Multiple fractures of ribs, left side, initial encounter for closed fracture; W19.XXXA Unspecified fall, initial encounter
CPT/HCPCS: 36415; 71045; 80053; 81001; 83735; 85025; 87086; 99283

== ENCOUNTER 2025-03-16 18:37 | Emergency (ER) | payer MEDICARE, MEDICAID, SELFPAY ==
--- NOTE | ~2025-03-16 | CT_ITS ---
CT HEAD NON-CONTRAST CT C-SPINE Clinical History: fall Comparison: Exams 06/13/2022 Technique: Unenhanced axial images skull base to vertex. Coronal, sagittal reformats. Axial images thoracic inlet to skull base. Sagittal and coronal reformats. CT images acquired with automatic exposure control for dose reduction DLP: 681 mGy-cm Findings: Head: Global atrophy. Chronic white matter microvascular ischemic changes. Sulci, ventricles: Unremarkable. No intracerebral hemorrhage. No evidence acute territorial infarct. No mass effect, midline shift, intra-/extra-axial fluid collection. Bony calvarium intact. Visualized paranasal sinuses: Clear. Mastoid air cells: Clear. C-spine: No acute fracture. Grade 1 anterolisthesis of C2 on 3. Straightening of normal cervical lordosis. Moderate degenerative changes. Prevertebral soft tissues within normal limits. Visualized lung apices: Clear. Visualized thyroid: Enhancing nodule left lobe. No enlarged cervical nodes. IMPRESSION: HEAD: 1. No acute intracranial findings. C-SPINE: 1. No acute fracture. 2. Left thyroid nodule. Recommend thyroid ultrasound. Reviewed, dictated and finalized at location R. IMPRESSION: HEAD: 1. No acute intracranial findings. C-SPINE: 1. No acute fracture. 2. Left thyroid nodule. Recommend thyroid ultrasound.
[2025-03-16 18:39] VITALS: BP 152/95; PULSE 79; RESP 20; TEMP 36.8; O2SAT 97
--- OUTSIDE RECORDS SUMMARY | 2025-03-16 18:40 | XMS_ITS | Encounter Summary ---
Author Organization [facility] Address [facility] [place] [address] Care Team Providers Care Sectionizer Name Role Phone Anish Eller MD Unavailable [phone] Ariane Reyes LAWYER [employer] ESTATE Primary Care Provider [phone] Cha Fernandez NP Unavailable [phone] Paul Escobedo DO Unavailable Gagan Godinez MD Unavailable [phone] Tiffany Dan Primary Care Provider [phone] Encounter Details Date Type Department Care Team (Late st Contact Info) Description 06/26/2023 JumpSeat Message Enc [facility] Family & Internal Medicine [address] [id number] [place] Provider Colonoscopy Social History Tobacco Use Types [...] Master's degree (e.g., MA, MS, Maira, MEd, GEAR LAPPER, CELIA) 05/16/2018 Comments No Sex and Gender Information Value Date Recorded Sex Assigned at Female 05/16/2018 2:28 PM COMPUTER SYSTEMS CONSULTANT Legal Sex Female 8:23 PM CDT Gender Identity Female 05/16/2018 2:28 PM COMPUTER SYSTEMS CONSULTANT Sexual Orientation Straight 05/16/2018 2: 28 PM COMPUTER SYSTEMS CONSULTANT Occupation Industry Job Start Date Job End [...] documented as of this encounter Care Teams Sectionizer Relationship Specialty Start Date End Date Ariane Reyes NP [facility]. [address] [address] PCP - General Assisted Living Facility 01/24/21 Tiffany Dan APNP [address] [place] [address] PCP - General 07/02/23 Anish Eller MD [facility]. [address] [address] [place] Team Coordinator CARDIOVASCULAR DISEASE 01/23/19 Cha Fernandez NP [facility]. [address] [address] Nurse Practitioner Assisted Living Facility 01/24/21 Paul Escobedo DO [facility]. [address] [address] Consulting Physician Assisted Living Facility 01/24/21 Gagan Godinez MD [address] [place] [address] HOSPITALIST 01/31/21 documented as of this encounter
--- OUTSIDE RECORDS SUMMARY | 2025-03-16 18:40 | XMS_ITS | Encounter Summary ---
Author Organization [facility] Address [facility] [place] [address] Care Team Providers Care Cooler Service Supervisor Name Role Phone Belkis Vela PROFESSOR OF POLITICAL SCIENCE Primary Care Provider Anish Castellanos MD Unavailable [phone] Michelle Sanchez RN Unavailable [phone] Qi Cross RN Unavailable [phone] Gavi Wright RN Unavailable Unavailab Annie Dimas Primary Care Provider + [phone] Kaiden Batista MD Primary Care Provider UnavailMargaret Villalobos PROFESSOR OF POLITICAL SCIENCE Primary Care Provider [phone] Ariane Reyes PROFESSOR OF POLITICAL SCIENCE Primary Care Provider [phone] Cha Fernandez PROFESSOR OF POLITICAL SCIENCE Unavailable [phone] Paul Escobedo DO Unavailable Gagan Godinez MD Unavailable [phone] Tiffany DanNP Primary Care Provider [phone] Encounter Details Date Type Department Care Team (Late st Contact Info) Description 05/17/2015 Abstract [facility] CONVERSION [address] [place] [address] , Generic Conversion, Social History Tobacco Use Types Packs/Day Years Used Date Smoking Tobacco: Never Assessed Comments Unknown Sex and Gender Information Value Date Recorded Sex Assigned at Female 05/16/2018 2:28 PM PROFESSOR OF CHEMICAL ENGINEERING Legal Sex Female 8:23 PM CDT Gender Identity Female 05/16/2018 2:28 PM PROFESSOR OF CHEMICAL ENGINEERING Sexual Orientation Straight 05/16/2018 2: 28 PM PROFESSOR OF CHEMICAL ENGINEERING documented as of this encounter Plan of Treatment Not on file documented as of this encounter Visit Diagnoses Not on filedocumented in this encounter Care Teams Cooler Service Supervisor Relationship Specialty Start Date End Date Belkis Vela NP PCP - General NURSE PRACTITIONER 04/09/18 05/19/20 [place] [address] [place] [address] PCP - General PHYSICIAN CORNER CUTTER MACHINE OPERATOR 05/20/20 10/16/20 [place] [address] [place] [address] PCP - General FAMILY MEDICINE SPORTS MEDICINE 11/07/20 01/03/21 Margaret Fiore NP [address] [place] [address] PCP - General NURSE PRACTITIONER 01/04/21 01/23/21 Ariane Reyes NP [address] [place] [address] PCP - General Assisted Living Facility 01/24/21 07/01/23 Tiffany Dan APNP [address] [place] [address] PCP - General 07/02/23 Anish Eller MD [address] [address] Rekha State Archivist CARDIOVASCULAR DISEASE 01/23/19 Michelle Sanchez, RN [address] [place] [address] Resp Therapist (Ambulatory) REGISTERED NURSE 03/13/19 04/12/19 Qi Cross, RN [address] [facility] [address] [place] [address] Resp Therapist (Ambulatory) REGISTERED NURSE 03/17/19 04/12/19 Gavi Wright RN Care Manager (Ambulatory) REGISTERED NURSE 04/01/19 04/12/19 Cha Fernandez NP [address] [place] [address] Nurse Practitioner Assisted Living Facility 01/24/21 Paul Escobedo DO [address] [place] [address] Consulting Physician Assisted Living Facility 01/24/21 Gagan Godinez MD [address] [place] [address] HOSPITALIST 01/31/21 documented as of this encounter
--- OUTSIDE RECORDS SUMMARY | 2025-03-16 18:40 | XMS_ITS | Encounter Summary ---
Author Organization [facility] Address [facility] [place] [address] Care Team Providers Care Manager Environmental Services Name Role Phone Belkis Vela NEONATAL NURSE Primary Care Provider Anish Castellanos MD Unavailable [phone] Michelle Sanchez RN Unavailable [phone] Qi Cross RN Unavailable [phone] Gavi Wright RN Unavailable Unavailab Annie Dimas Primary Care Provider + [phone] Kaiden Batista MD Primary Care Provider UnavailMargaret Villalobos NEONATAL NURSE Primary Care Provider [phone] Ariane Reyes NEONATAL NURSE Primary Care Provider [phone] Cha Fernandez NEONATAL NURSE Unavailable [phone] Paul Escobedo DO Unavailable Gagan Godinez MD Unavailable [phone] Tiffany DanNP Primary Care Provider [phone] Encounter Details Date Type Department Care Team (Late st Contact Info) Description 05/30/2015 Abstract [facility] [address] [place] [address] , Generic Conversion, Social History Tobacco Use Types Packs/Day Years Used Date Smoking Tobacco: Never Assessed Comments Unknown Sex and Gender Information Value Date Recorded Sex Assigned at Female 05/16/2018 2:28 PM CARPET WINDER Legal Sex Female 8:23 PM CDT Gender Identity Female 05/16/2018 2:28 PM CARPET WINDER Sexual Orientation Straight 05/16/2018 2: 28 PM CARPET WINDER documented as of this encounter Plan of Treatment Not on file documented as of this encounter Visit Diagnoses Not on filedocumented in this encounter Care Teams Manager Environmental Services Relationship Specialty Start Date End Date Belkis Vela NP PCP - General NURSE PRACTITIONER 04/09/18 05/19/20 [place] [address] [place] [address] PCP - General PHYSICIAN SUPERVISOR PIT AND AUXILIARIES 05/20/20 10/16/20 [place] [address] [place] [address] PCP - General FAMILY MEDICINE SPORTS MEDICINE 11/07/20 01/03/21 Margaret Fiore NP [address] [place] [address] PCP - General NURSE PRACTITIONER 01/04/21 01/23/21 Ariane Reyes NP [address] [place] [address] PCP - General Assisted Living Facility 01/24/21 07/01/23 Tiffany Dan APNP [address] [place] [address] PCP - General 07/02/23 Anish Eller MD [address] [address] Rekha Skidder Operator CARDIOVASCULAR DISEASE 01/23/19 Michelle Sanchez, RN [address] [place] [address] [address] Officer (Ambulatory) REGISTERED NURSE 03/13/19 04/12/19 Qi Cross, RN [address] [facility] [address] [place] [address] [address] Officer (Ambulatory) REGISTERED NURSE 03/17/19 04/12/19 Gavi Wright RN Care Manager (Ambulatory) REGISTERED NURSE 04/01/19 04/12/19 Cha Fernandez NP [address] [place] [address] Nurse Practitioner Assisted Living Facility 01/24/21 Paul Escobedo DO [address] [place] [address] Consulting Physician Assisted Living Facility 01/24/21 Gagan Godinez MD [address] [place] [address] HOSPITALIST 01/31/21 documented as of this encounter
--- OUTSIDE RECORDS SUMMARY | 2025-03-16 18:40 | XMS_ITS | Clinical Summary ---
Author Organization [facility] Address [address] [place] [address] Care Team Providers Care Planning Technician Name Role Phone Anish Eller MD Unavailable [phone] Cha Fernandez NP Unavailable [phone] Paul Escobedo DO Unavailable Gagan Godinez MD Unavailable [phone] Tiffany Dan Primary Care Provider [phone] Allergies Active Allergy Reactions Criticality Noted Date [...] MG chewable tabletIndications :Coronary artery disease involving tuolumne coronary artery of tuolumne heart, unspecified whether angina present Chew 1 [...] 05/21/2020 Assessment & Plan (07/19/2020 4:14 PM PALLIATIVE CARE NURSE): Fell down stairs 05/21/2020. Transferred from [place] to [facility]. 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 11/07/2020 Bipolar disorder ([facility]) 03/12/2016 11/07/2020 Hypokalemia 12/23/2015 07/12/2020 Hyponatremia 12/23/2015 07/12/2020 Breast mass 05/20/2015 07/12/2020 Encounters Date Type Department Care Team Description 02/10/2025 Scan [facility] Scanned, Doc [facility] 01/08/2025 Scan [facility] Scanned, Doc Med Group 01/06/2025 Scan [facility] Scanned, Doc Med Group from Last 3 Months Immunizations Immunization Administration Dates Next Due Fluzone High Dose - >Age 65 (Prefilled Syringe) 02/25/2020,03/26/2019,03/11/2018,2016,04/25/2016,04/21/2015,04/16/2014 Influenza (Generic) 03/26/2019, 8,05/17/2017,2015,04/21/2015,04/16/2014,03/11/2013,1 Influenza Adult (Generic) 04/25/2023,04/19/2021 Pneumococcal (Prevnar 13) 04/25/2016 Td (Tenivac) preservative free 12/01/2009 Tdap (Adacel) 02/25/2020 Zoster (Zostavax) [address] Unt/0.65Ml 01/29/2013 Family History Medical History Relation [...] Master's degree (e.g., MA, MS, Maira, MEd, GRANULAR OPERATOR, CELIA) 05/16/2018 Comments No Sex and Gender Information Value Date Recorded Sex Assigned at Female 05/16/2018 2:28 PM PALLIATIVE CARE NURSE Legal Sex Female 8:23 PM CDT Gender Identity Female 05/16/2018 2:28 PM PALLIATIVE CARE NURSE Sexual Orientation Straight 05/16/2018 2: 28 PM PALLIATIVE CARE NURSE Occupation Industry Job Start Date Job End [...] Years (1 - 1-dose 75+ series) 01/03/2023 PHQ-2 (Physician [place]) 07/01/2024 07/02/2023 COVID-19 Vaccine ( - season) 2025 12/15/2021, 05/11/2021, 09/21/2020, Additional history exists DTaP, Tdap and Td Vaccines (2 - Td or Tdap) 02/24/2030 02/25/2020, 12/01/2009 Colorectal Cancer Screening Colonoscopy (10 Years) Discontinued 06/07/2010 Hepatitis C Completed 11/24/2019 Dexa Scan (General) Completed 04/10/2022, 2 Meningococcal B Vaccine Aged Out No l [...] level Hypouricemia COLONOSCOPY Routine 06/07/2010 12:00 AM PALLIATIVE CARE NURSE from Last 3 Months or Most Recently Relevant to Health Maintenance Results * BONE DENSITY GENERIC (04/10/2022) Anatomical Region Laterality Modality Other 04/10/2022 us Doc Med [facility] Scanned SCANNING Final Resu lt * HEPATITIS C ANTIBODY (11/24/2019 4:26 PM CDT) HEPATITIS C AB NON-REACTI VE NON-REACTI VE 11/25/2019 10:50 AM CDT [facility] 11/24/2019 4:26 PM CDT Belkis Vela NP LABORATORY Final Result [facility] [address] [place] [address], [place] [phone] * Colonoscopy (06/07/2010 12:00 AM PALLIATIVE CARE NURSE) 06/07/2010 06/07/2010 Narrative [facility] TO EPIC CONVERSION - 06/07/2010 12:00 AM PALLIATIVE CARE NURSE Documented hx of procedure Procedure Note Keyla Rivas MD - 05/04/2018 Documented hx of procedure us Generic Conversion Md [facility] GI PROCEDURE ORDERABLES Final Result [facility] TO [facility] CONVERSION from Last 3 Months or Most Recently Relevant to Health Maintenance Insurance [employer] Advance Directives Documents on File Type Date Recorded Patient Home Child Care Provider Expl anation Power of Motorcycle Mechanic 06/07/2022 8:52 AM 2019 POA property Advance [...] and/or is breathing): Full Treatment Care Teams Planning Technician Relationship Specialty Start Date End Date Tiffany Dan APNP [facility] [place] [address] PCP - General 07/02/23 Anish Eller MD [address] [address] [place] Can Solderer CARDIOVASCULAR DISEASE 01/23/19 Cha Fernandez NP [address] [address] Nurse Practitioner Assisted Living Facility 01/24/21 Paul Escobedo DO [address] [address] Consulting Physician Assisted Living Facility 01/24/21 Gagan Godinez MD [address] [place] [address] HOSPITALIST 01/31/21
--- NOTE | 2025-03-16 19:15 | PC.NURSE ---
Assumed care of patient after receiving bedside report from DANIA Montalvo. KD Erwin at bedside. Pt had no questions for me at this time.
--- NOTE | 2025-03-16 19:23 | ED.HEATRA ---
HPI - Head Injury General Chief complaint: Head Injury Stated complaint: glf Time Seen by Provider: 03/16/25 19:01 History of Present Illness HPI Narrative: Patient is a 75-year-old female who presents to the ER after sustaining a fall. She reports she is unsure how she fell or what she struck her head on. Patient is unsure whether not she lost consciousness. She denies pain at the time of examination. Patient reports she is on aspirin but not on any blood thinners. She endorses a history of a heart attack, pulmonary embolism, ectopic and multiple falls. Patient denies any headache, neck pain, back pain, loss of continence, numbness and tingling, or chest pain. Related Data Home Medications ?Medication ?Instructions ?Recorded ?Confirmed ?Last Taken ?Type aspirin 81 mg chewable tablet 03/01/21 Unknown History bupropion HCl 300 mg 24 hr tablet, mg PO 03/01/21 Unknown History extended release levothyroxine 88 mcg tablet 03/01/21 Unknown History modafinil 200 mg tablet mg 03/01/21 Unknown History nystatin 100,000 unit/gram topical topical 03/01/21 Unknown History powder (Nystop) potassium chloride 10 mEq meq PO 03/01/21 Unknown History tablet,extended release Allergies Allergy/AdvReac Type Severity Reaction Status Date / Time garlic Allergy Unknown Verified 01/06/25 19:39 Review of Systems Review of Systems: All systems reviewed & are unremarkable except as noted in HPI and below PMFSH Past Medical History Medical History Dementia Hypothyroidism Depression Surgical History Surgical History No pertinent past surgical history Social History Social History Social History: Resides at [facility] Exam Narrative: GENERAL: Well appearing, well-nourished, non-toxic, in no acute distress. HEAD: Normocephalic, approximately 4 cm linear laceration to occipital region, bleeding controlled NECK: Supple. No adenopathy, no masses. RESPIRATORY: Airway patent, respirations nonlabored. Clear to auscultation bilaterally, no rales, rhonchi, wheezing. CARDIOVASCULAR: Regular rate and rhythm without murmurs, rubs, or gallops. Peripheral pulses 2+ and equal bilaterally. ABDOMINAL: Soft, nontender, nondistended, no hepatosplenomegaly. Normoactive BS. MUSCULOSKELETAL: Moves all extremities. Strength/ROM intact without gross deformities. SKIN: Warm, dry, normal color. No rashes. NEURO: A&O X3. Speech clear. Cranial nerves II-XII intact. No ataxic movements. PSYCHIATRIC: Appropriate mood and affect. Normal interaction. Course Vital Signs Vital signs: Vital Signs Temperature 36.8 C 03/16/25 18:39 Pulse Rate 79 03/16/25 18:39 Respiratory Rate 20 03/16/25 18:39 Blood Pressure 152/95 H 03/16/25 18:39 Pulse Oximetry 97 03/16/25 18:39 Temperature 36.8 C 03/16/25 18:39 Pulse Rate 79 03/16/25 18:39 Respiratory Rate 20 03/16/25 18:39 Blood Pressure 152/95 H 03/16/25 18:39 Pulse Oximetry 97 03/16/25 18:39 MDM - Head Injury MDM Narrative Medical decision making narrative: Patient is a 75-year-old female who presents to the ER after sustaining a fall. She reports she is unsure how she fell or what she struck her head on. Patient is unsure whether not she lost consciousness. She denies pain at the time of examination. Patient reports she is on aspirin but not on any blood thinners. She endorses a history of a heart attack, pulmonary embolism, ectopic and multiple falls. Patient denies any headache, neck pain, back pain, loss of continence, numbness and tingling, or chest pain. Labs Ordered: None necessary Imaging Ordered: CT cervical spine, CT brain Medications Ordered: Tdap IM, patient declined pain medication Results: Patient's CT scans indicate 1. No acute fracture. 2. Left thyroid nodule. Recommend thyroid ultrasound. Diagnosis: Concussion, occipital scalp laceration Patient Education/Shared MDM: Results of imaging shared with patient. She continues to deny any pain since she has been here in the ER in continues to refuse pain medication. Patient strongly advised to follow-up with her PCP in the next 2-3 days to ensure her wound is healing. She should have her nahum removed in 7-10 days. Patient will not be discharged home with any new prescriptions. Strict return precautions provided. Patient verbalized understanding and is in agreement with plan. Vital signs stable at time of discharge. All questions answered. Differential Diagnosis Differential diagnosis: Likely concussion without loss of consciousness, epidural hematoma, subarachnoid hematoma, subdural hematoma and concussion with loss of consciousness Imaging Data Attestation: I personally reviewed and interpreted this imaging study as follows: Radiologist's impression: Impressions Cervical Spine CT 03/16/25 19:12 IMPRESSION: HEAD: 1. No acute intracranial findings. C-SPINE: 1. No acute fracture. 2. Left thyroid nodule. Recommend thyroid ultrasound. Head CT 03/16/25 19:12 IMPRESSION: HEAD: 1. No acute intracranial findings. C-SPINE: 1. No acute fracture. 2. Left thyroid nodule. Recommend thyroid ultrasound. Discharge Plan Discharge Clinical Impression: Concussion with loss of consciousness, Laceration of occipital region of scalp Patient Disposition: Home Condition: Stable Instructions: Antibiotic Form, Concussion (ED), Staple Care (ED) Additional Instructions: Please return to the ER with any worsening symptoms. Follow-up with primary care provider as soon as possible to ensure your wound is healing. Take all medications as prescribed, including regularly scheduled medications. You may take Tylenol as needed for pain control. Please return here or go to your primary care provider in 7-10 days for staple removal. Patient Language: Guyanese Prescriptions: No Action potassium chloride 10 mEq tablet extended release PO levothyroxine 88 mcg Tablet modafinil 200 mg Tablet aspirin 81 mg Tablet,Chewable nystatin [Nystop] 100,000 unit/gram powder TOPICAL bupropion HCl 300 mg Tablet Extended Release 24 Hr PO cephalexin 500 mg capsule 500 mg PO Q8H Qty: 21 0RF tramadol 50 mg tablet 50 mg PO Q6H PRN (Reason: pain) Qty: 12 0RF Follow-up/Referrals: Jesus Manuel,MD [place] [Primary Care Provider] Time of Disposition: 20:14
[2025-03-16] MEDS: TETANUS,DIPHTHERIA,AC PERTUSSIS ADULT (0.5 ML) BOOSTRIX IM (19:41)
--- OUTSIDE RECORDS SUMMARY | 2025-03-16 19:54 | XMS_ITS | Encounter Summary ---
Author Organization [facility] Address [facility] [place] [address] Care Team Providers Care Rigger Chief Name Role Phone Anish Eller MD Unavailable [phone] Ariane Reyes LIVESTOCK EXHIBITOR Primary Care Provider [phone] Cha Fernandez NP Unavailable [phone] Paul Escobedo DO Unavailable Gagan Godinez MD Unavailable [phone] Tiffany Dan Primary Care Provider [phone] Encounter Details Date Type Department Care Team (Late st Contact Info) Description 06/26/2023 [employer] Message Enc [facility] Medical Group Family & Internal Medicine [address] [address] Phil, [facility] Provider Colonoscopy Social History Tobacco Use [...] Master's degree (e.g., MA, MS, Maira, MEd, REFORMATORY ATTENDANT, CELIA) 05/16/2018 Comments No Sex and Gender Information Value Date Recorded Sex Assigned at Female 05/16/2018 2:28 PM ROLL BUCKER Legal Sex Female 8:23 PM CDT Gender Identity Female 05/16/2018 2:28 PM ROLL BUCKER Sexual Orientation Straight 05/16/2018 2: 28 PM ROLL BUCKER Occupation Industry Job Start Date Job End [...] documented as of this encounter Care Teams Rigger Chief Relationship Specialty Start Date End Date Ariane Reyes NP [facility]. [address] [address] PCP - General Assisted Living Facility 01/24/21 Tiffany Dan APNP [address] [place] [address] PCP - General 07/02/23 Anish Eller MD [facility]. [address] [address] [place] Gristmill Operator CARDIOVASCULAR DISEASE 01/23/19 Cha Fernandez NP [facility]. [address] [address] Nurse Practitioner Assisted Living Facility 01/24/21 Paul Escobedo DO [facility]. [address] [address] Consulting Physician Assisted Living Facility 01/24/21 Gagan Godinez MD [address] [place] [address] HOSPITALIST 01/31/21 documented as of this encounter
--- OUTSIDE RECORDS SUMMARY | 2025-03-16 19:54 | XMS_ITS | Encounter Summary ---
Author Organization [facility] Address [facility] [place] [address] Care Team Providers Care Bereavement Program Coordinator Name Role Phone Belkis Vela HEAVY MACHINERY OPERATOR Primary Care Provider Anish Castellanos MD Unavailable [phone] Michelle Sanchez RN Unavailable [phone] Qi Cross RN Unavailable [phone] Gavi Wright RN Unavailable Unavailab Annie Dimas Primary Care Provider [phone] Kaiden Batista MD Primary Care Provider UnavailMargaret Villalobos HEAVY MACHINERY OPERATOR Primary Care Provider [phone] Ariane Reyes HEAVY MACHINERY OPERATOR Primary Care Provider [phone] Cha Fernandez HEAVY MACHINERY OPERATOR Unavailable [phone] Paul Escobedo DO Unavailable Gagan Godinez MD Unavailable [phone] Tiffany DanNP Primary Care Provider [phone] Encounter Details Date Type Department Care Team (Late st Contact Info) Description 05/17/2015 Abstract [facility] CONVERSION [address] [place] [address] , Generic Conversion, Social History Tobacco Use Types Packs/Day Years Used Date Smoking Tobacco: Never Assessed Comments Unknown Sex and Gender Information Value Date Recorded Sex Assigned at Female 05/16/2018 2:28 PM PASSENGER VESSEL CHEF Legal Sex Female 8:23 PM CDT Gender Identity Female 05/16/2018 2:28 PM PASSENGER VESSEL CHEF Sexual Orientation Straight 05/16/2018 2: 28 PM PASSENGER VESSEL CHEF documented as of this encounter Plan of Treatment Not on file documented as of this encounter Visit Diagnoses Not on filedocumented in this encounter Care Teams Bereavement Program Coordinator Relationship Specialty Start Date End Date Belkis Vela NP PCP - General NURSE PRACTITIONER 04/09/18 05/19/20 [place] [address] [place] [address] PCP - General PHYSICIAN INFANTRY UNIT LEADER 05/20/20 10/16/20 [place] [address] [place] [address] PCP - General FAMILY MEDICINE SPORTS MEDICINE 11/07/20 01/03/21 Margaret Fiore NP [address] [place] [address] PCP - General NURSE PRACTITIONER 01/04/21 01/23/21 Ariane Reyes NP [address] [place] [address] PCP - General Assisted Living Facility 01/24/21 07/01/23 Tiffany Dan APNP [address] [place] [address] PCP - General 07/02/23 Anish Eller MD [address] [address] Rekha Solid State Tester CARDIOVASCULAR DISEASE 01/23/19 Michelle Sanchez, RN [address] [place] [address] Tax Agent (Ambulatory) REGISTERED NURSE 03/13/19 04/12/19 Qi Cross, RN [address] [facility] [address] [place] [address] Tax Agent (Ambulatory) REGISTERED NURSE 03/17/19 04/12/19 Gavi Wright RN Care Manager (Ambulatory) REGISTERED NURSE 04/01/19 04/12/19 Cha Fernandez NP [address] [place] [address] Nurse Practitioner Assisted Living Facility 01/24/21 Paul Escobedo DO [address] [place] [address] Consulting Physician Assisted Living Facility 01/24/21 Gagan Godinez MD [address] [place] [address] HOSPITALIST 01/31/21 documented as of this encounter
--- OUTSIDE RECORDS SUMMARY | 2025-03-16 19:54 | XMS_ITS | Clinical Summary ---
Author Organization [facility] Address [address] [place] [address] Care Team Providers Care Grinder Set Up Operator Thread Tool Name Role Phone Anish Eller MD Unavailable [phone] Cha Fernandez NP Unavailable [phone] Paul Escobedo DO Unavailable Gagan Godinez MD Unavailable [phone] Tiffany Dan Primary Care Provider [phone] Allergies Active Allergy Reactions Criticality Noted Date [...] MG chewable tabletIndications :Coronary artery disease involving rincon coronary artery of rincon heart, unspecified whether angina present Chew 1 [...] 05/21/2020 Assessment & Plan (07/19/2020 4:14 PM ADMISSIONS ASSISTANT): Fell down stairs 05/21/2020. Transferred from [place] to [facility]. Subdural hematoma as well as to [...] right side 05/21/20 Lumbar transverse process fracture ([facility]) 05/21/2020 Memory loss, short term 08/26/2019 BMI [...] left lung 05/21/202011/07 SAH (subarachnoid hemorrhage ) ([facility]) 05/21/2020 07/02/2023 Subdural hematoma 05/21/2020 07/02/2023 Trauma 05/21/2020 11/07/2020 Cellulitis of right lower leg 01/20/2019 11/07/2020 Urinary frequency 11/27/2018 11/07/2020 Dizziness 11/27/2018 07/12/2020 Vertigo 11/27/2018 07/12/2020 Neoplasm of uncertain behavior 11/08/2017 11/07/2020 Bipolar disorder ([facility]) 03/12/2016 11/07/2020 Hypokalemia 12/23/2015 07/12/2020 Hyponatremia 12/23/2015 [...] free 12/01/2009 Tdap (Adacel) 02/25/2020 Zoster (Zostavax) 52541 Unt/0.65Ml 01/29/2013 Family History Medical History Relation [...] Master's degree (e.g., MA, MS, Maira, MEd, FRONT END LOADER OPERATOR, [employer]) 05/16/2018 Comments No Sex and Gender Information Value Date Recorded Sex Assigned at Female 05/16/2018 2:28 PM ADMISSIONS ASSISTANT Legal Sex Female 8:23 PM CDT Gender Identity Female 05/16/2018 2:28 PM ADMISSIONS ASSISTANT Sexual Orientation Straight 05/16/2018 2: 28 PM ADMISSIONS ASSISTANT Occupation Industry Job Start Date Job End [...] - 1-dose 75+ series) 01/03/2023 PHQ-2 (Physician [place]) 07/01/2024 07/02/2023 COVID-19 Vaccine ( - season) [...] level Hypouricemia COLONOSCOPY Routine 06/07/2010 12:00 AM ADMISSIONS ASSISTANT from Last 3 Months or Most Recently Relevant to Health Maintenance Results * BONE DENSITY GENERIC (04/10/2022) Anatomical Region Laterality Modality Other 04/10/2022 [facility] Scanned SCANNING Final Resu lt * HEPATITIS C ANTIBODY (11/24/2019 4:26 PM CDT) HEPATITIS C AB NON-REACTI VE NON-REACTI VE 11/25/2019 10:50 AM CDT [facility] 11/24/2019 4:26 PM CDT Belkis Vela NP LABORATORY Final Result [facility] [address] [place] [address], [place] [phone] * Colonoscopy (06/07/2010 12:00 AM ADMISSIONS ASSISTANT) 06/07/2010 06/07/2010 Narrative [facility] TO EPIC CONVERSION - 06/07/2010 12:00 AM ADMISSIONS ASSISTANT Documented hx of procedure Procedure Note Keyla Rivas MD - 05/04/2018 Documented hx of procedure us Generic Conversion Md [facility] PROCEDURE ORDERABLES Final Result [facility] TO EPIC CONVERSION from Last 3 Months or Most Recently Relevant to Health Maintenance Insurance [employer] Advance Directives Documents on File Type Date Recorded Patient Director Of Contracts Expl anation Power of Spinning Operator 06/07/2022 8:52 AM 2019 POA property Advance [...] and/or is breathing): Full Treatment Care Teams Grinder Set Up Operator Thread Tool Relationship Specialty Start Date End Date Tiffany Dan APNP [facility] [place] [address] PCP - General 07/02/23 Anish Eller MD [address] [address] [place] [employer] CARDIOVASCULAR DISEASE 01/23/19 Cha Fernandez NP [address] [address] Nurse Practitioner Assisted Living Facility 01/24/21 Paul Escobedo DO [address] [address] Consulting Physician Assisted Living Facility 01/24/21 Gagan Godinez MD [address] [place] [address] HOSPITALIST 01/31/21
== END 2025-03-16 22:30 | disposition home or self-care (01) ==
PROVIDERS: Emergency Provider Registered Nurse; PCP Internal Medicine
DX: S06.0X9A Concussion with loss of consciousness of unspecified duration, initial encounter (principal); S01.01XA Laceration without foreign body of scalp, initial encounter; Z23 Encounter for immunization; F03.90 Unspecified dementia, unspecified severity, without behavioral disturbance, psychotic disturbance, mood disturbance, and anxiety; I25.2 Old myocardial infarction; E03.9 Hypothyroidism, unspecified; F32.A Depression, unspecified; Z86.711 Personal history of pulmonary embolism; E04.1 Nontoxic single thyroid nodule; Z79.82 Long term (current) use of aspirin; Z79.899 Other long term (current) drug therapy; W19.XXXA Unspecified fall, initial encounter
CPT/HCPCS: 12002; 70450; 72125; 90471; 90715; 99284